=== PATIENT | male | born 1955 | race African-American/Black ===

== ENCOUNTER 2017-03-27 14:39 | Inpatient (IN) ==
[2017-03-27] MEDS ORDERED: DILTIAZEM 50 MG/10 ML VIAL IV STA (14:59)
[2017-03-27] MEDS ORDERED: SODIUM CHLORIDE 0.9% 500 ML IV STA ×2 (15:00→15:07)
--- NOTE | 2017-03-27 15:08 | Emergency Department Note ---
Lakesha Yu Rolonda, am scribing for, and in the presence of, Grayson Conklin MD 15: 01. Katerin Yu James D, MD, personally performed the services described in this documentation, ascribed by Ho Crowder in my presence, and it is both accurate and complete [id number] . Arrival - Arrival Chief Complaint: Shortness of Breath ED Nursing Triage Note: PT WAS PICKED UP BY EMS AND TAKEN TO [facility] FOR LOW O2 SATS AND SOB. PT WAS DX WITH CHF-PRODUCTIVE COUGH AND PULMARY EDEMA AND POSITIVE FOR STREPH Mode of Arrival: Stretcher Limitations: No Limitations Source: Old Records Reviewed, RN Notes Reviewed - History of Present Illness HPI Narrative: Pt is a 61 y/o male who presents to the ED via EMS from [facility] for further evaluation of SOB with an onset of hours ago. Patient states that his caregiver found him at home and that he had not eaten in 2 days. Patient was recently discharged from [facility] rehab. Pt has a PMHx of CHF, Pulmonary edema, Cardiac dysrhythmia, and PVD. He confirms associated sxs of fever and cough. At time of triage pt's temperature was 99.0. Pt states that his healthcare administration intern advised him to go to ED. Pt was given 1g of rocephin and blood cultures were taken at [facility]. No other complaint/pain in ED. Onset (ago): hour(s) Consistency: constant Severity: moderate Severity scale (1-10): 5 Allergies/Adverse Reactions: Allergies Allergy/AdvReac Type Severity Reaction Status Date / Time lactose Allergy Abdominal Verified 03/11/17 18:28 Pain Home Medications: Home Medications Medication Instructions Recorded Confirmed Type Apixaban [Eliquis] 5 mg PO DAILY 03/11/17 03/27/17 History Gabapentin 300 mg PO TID 03/11/17 03/27/17 History Metoprolol Tartrate Tab [Lopressor 100 mg PO BID 03/11/17 03/27/17 History Tab] Mycophenolate Mofetil Cap 250 mg PO BID 03/11/17 03/27/17 History [Cellcept] Potassium Chloride Cap/Tab [K Dur] 40 meq PO DAILY 03/11/17 03/27/17 History Tamsulosin [Flomax] 1 capsule PO DAILY 03/11/17 03/27/17 History Torsemide 100 mg PO DAILY 03/11/17 03/27/17 History Pentoxifylline [TRENtal] 400 mg PO TID tablet 03/23/17 03/27/17 Rx Skin Healing Oint (Aquaphor) 1 applic TOP DAILY applic 03/23/17 03/27/17 Rx [Aquaphor] Furosemide Tab [Lasix Tab] 80 mg PO BID 03/27/17 03/27/17 History Minoxidil 10 mg PO BID 03/27/17 03/27/17 History Spironolactone 50 mg PO DAILY 03/27/17 03/27/17 History predniSONE TAB [PredniSONE] 20 mg PO DAILY 03/27/17 03/27/17 History Review of System - Review of System 12 point system: reviewed and no additional remarkable complaints except as stated - Review of System Constitutional: Present: fever. Absent: chills Eyes: Absent: discharge Head/Ears/Nose/Throat: Absent: earache Respiratory: Present: cough, respiratory distress (SOB) Cardiovascular: Absent: chest pain Gastrointestinal: Absent: abdominal pain, nausea, vomiting Genitourinary male: Absent: dysuria Musculoskeletal: Absent: arm pain, back pain Skin: Absent: rash Medical,Surgical,& Family Hx - Medical History Cardio: History of: Cardiac Dysrhythmia (Atrial fibrillation), CHF, Hypertension , PVD (with stasis ulcers on bilateral lower extremities) Neurology: History of: Cerebrovascular Accident Rheumatology: History of;: Gout Respiratory: History of: Pneumonia Renal: History of: Renal Failure, Renal Problems (Status post renal transplant) Genitourinary: History of: Problems (has adams catheter for bladder training. ) Gastrointestinal: History of: GERD Musculoskeletal: History of: Musculoskeletal Problems (Contracted left hand.) - Surgical History Thoracic Surgeries: Surgical HX of;: Organ Transplant (renal transplant) Orthopedic Surgeries: Surgical HX of;: Orthopedic Surgery (rotator cuff repair) - Social History Smoking Status: Never smoker Frequency of Alcohol Use: None Type of Drug Use: None Exam Vital Signs: Vital Signs Temperature 99.0 F 03/27/17 14:46 Pulse Rate 121 H 03/27/17 14:46 Respiratory Rate 20 03/27/17 15:13 Blood Pressure 100/69 03/27/17 14:46 O2 Sat by Pulse Oximetry 85 L 03/27/17 14:46 GENERAL: This is a chronically and acutely ill appearing black male in no apparent distress. VITAL SIGNS: Reviewed HEENT: Head is atraumatic and normocephalic. Pupils are equal round react to light. Extraocular movements are intact. Oropharynx is benign with moist mucous membranes. NECK: Neck is soft and supple without tenderness. There are no masses. There is no lymphadenopathy. LUNGS: Lungs are clear to auscultation. Chest rises symmetrically. There is no chest wall tenderness. CV: Heart is irregularly irregular with rapid rate without murmurs rubs or gallops. ABDOMEN: Abdomen is soft, nontender to palpation. There are no abdominal abnormal masses palpated. There is no organomegaly. Bowel sounds are present and active. SKIN: Skin is warm and dry. EXTREMITIES: Patient has full range of motion without tenderness. There is trace pedal edema. NEUROLOGIC: Awake alert and oriented 4. Cranial nerves II through XII are grossly intact. Course Course Narrative: Patient was given Cardizem bolus and infusion in the emergency department. Patient was treated at [facility] prior to transfer with 1 g of Rocephin IV. - Consultations Consultation #1: Discussed with hospitalist. Patient will be admitted to their service. Time: 15:32 Results - Labs Lab Results: I have reviewed the patients labs Labs: Lab performed at [facility] and reviewed by me CBC: WBCs 15,000, hemoglobin 11.7, hematocrit 37.3, platelet count 223,000 INR 1.23 Chemistry: Sodium 140, potassium 5.0, chloride 103, CO2 23, BUN 100, creatinine 2.6, calcium 9.4, ALT 50, AST 27, alk phos 110 BNP 16,356 Lactic acid 2.6 - Diagnostic Findings Procedure: Chest x-ray: image reviewed by me (Chest x-ray: Increased pulmonary markings right greater than left) Disposition Clinical Impression: Pneumonia, Acute renal failure, Atrial fibrillation with RVR Case discussed with: patient Disposition: Still a Patient Condition: Stable
[2017-03-27] MEDS ORDERED: SODIUM CHLORIDE 0.9% 1,000 ML IV STA (15:15)
[2017-03-27] MEDS ORDERED: DILTIAZEM 50 MG/10 ML VIAL IV ONE (15:18)
[2017-03-27] MEDS ORDERED: DILTIAZEM 100 MG VIAL.ADD IV ONE (15:18)
[2017-03-27] MEDS ORDERED: SODIUM CHLORIDE 0.9% 100 ML IV ONE (15:18)
[2017-03-27] MEDS: DILTIAZEM INJ 100 MG in SODIUM CHLORIDE 0.9% 100 ML IV SCH ×2 (15:23→22:02)
[2017-03-27] MEDS ORDERED: ACETAMINOPHEN 325 MG TABLET PO PRN (16:16)
[2017-03-27] MEDS ORDERED: ONDANSETRON 4 MG/2 ML VIAL IV PRN (16:16)
[2017-03-27] MEDS ORDERED: ALBUTEROL 2.5 MG/3 ML NEB RESP TX PRN (16:16)
[2017-03-27] MEDS ORDERED: DOCUSATE SODIUM 100 MG CAPSULE PO PRN (16:16)
[2017-03-27 16:48] LABS: ABG Base Excess -1.7 MMOL/L (-2.5-2.5); ABG HCO3 22.8 MMOL/L (20-26); ABG Oxygen Saturation 91.7 % (95-100); ABG PCO2 26.6 MM HG (35-48); ABG PH 7.495 (7.35-7.45); ABG PO2 60.4 MM HG (80-95); ABG TCO2 18.5 MMOL/L (23-27)
[2017-03-27] MEDS ORDERED: PIPERACILLIN/TAZOBACTAM 3,375 MG in SODIUM CHLORIDE 0.9% 100 ML IV ONE (17:00)
[2017-03-27] MEDS ORDERED: VANCOMYCIN INJ 1,250 MG in SODIUM CHLORIDE 0.9% 250 ML IV PRN (17:00)
--- NOTE | 2017-03-27 17:04 | Hospitalist History & Physical ---
Assessment and Plan - Time spent with patient Time spent with patient: Greater than 30 minutes (1) Pneumonia Status: Acute Assessment and plan: Admit. Start on antibiotics. consult infectious disease. Repeat labs in a.m. Current Visit: Yes (2) Atrial fibrillation with RVR Status: Acute Assessment and plan: On cardiazem infusion for A Fib with RVR. Rate is controlled at time of exam. Current Visit: Yes (3) Open wound of both legs with complication Status: Acute Assessment and plan: Consult Dr Davis (known to him) with PVD bilateral lower leg wounds. Current Visit: No (4) Pulmonary hypertension Status: Acute Assessment and plan: Patient has history of CHF and pulmonary hypertension and pulmonary edema. Consult Cardiology. Current Visit: Yes (5) History of kidney transplant Status: Acute Assessment and plan: Continue home medications. Monitor labs closely. Current Visit: No History of Present Illness Chief complaint: shortness of breath History of present illness: Mr. Phelps is a very pleasant 61 year old black male presented to [facility] ED via EMS from [facility] for further followup of shortness of breath. PMHx Atrial Fib, CHF, HTN, PVD, bilateral lower extremities with peripheral venous insufficiency ulcers, pulmonary edema, Kidney transplant (20 years ago). He reports fever and cough. He denies nausea or vomiting. Blood cultures were collected at [facility]. Patient noted to have Afib with RVR and currently on cardiazem infusion. Patient was discharged from [facility] on Sunday from Rehab. Patient states he has a caregiver that checks on him, and the healthcare corporate account director was concerned about the fact the patient has not eaten in 2 days. He lives alone. He reports he ambulates with a cane, but has left sided weakness related to previous stroke. Dr Monroe in [place] is his renal doctor (hx.right kidney transplant). Dr Davis follows him for HX of PVD with leg ulcers. After discussion with Dr Conklin in Ed and Dr Atkins with Hospitalist Services, it was agreed patient needed to be admitted to ICU for further close evaluation. Home medications will be reviewed and reconciliation to follow. Home Medications Medication Instructions Recorded Confirmed Type Apixaban [Eliquis] 5 mg PO DAILY 03/11/17 03/27/17 History Gabapentin 300 mg PO TID 03/11/17 03/27/17 History Metoprolol Tartrate Tab [Lopressor 100 mg PO BID 03/11/17 03/27/17 History Tab] Mycophenolate Mofetil Cap 250 mg PO BID 03/11/17 03/27/17 History [Cellcept] Potassium Chloride Cap/Tab [K Dur] 40 meq PO DAILY 03/11/17 03/27/17 History Tamsulosin [Flomax] 1 capsule PO DAILY 03/11/17 03/27/17 History Torsemide 100 mg PO DAILY 03/11/17 03/27/17 History Pentoxifylline [TRENtal] 400 mg PO TID tablet 03/23/17 03/27/17 Rx Skin Healing Oint (Aquaphor) 1 applic TOP DAILY applic 03/23/17 03/27/17 Rx [Aquaphor] Furosemide Tab [Lasix Tab] 80 mg PO BID 03/27/17 03/27/17 History Minoxidil 10 mg PO BID 03/27/17 03/27/17 History Spironolactone 50 mg PO DAILY 03/27/17 03/27/17 History predniSONE TAB [PredniSONE] 20 mg PO DAILY 03/27/17 03/27/17 History Allergies Allergy/AdvReac Type Severity Reaction Status Date / Time lactose Allergy Abdominal Verified 03/11/17 18:28 Pain Medical,Surgical,& Family Hx - Medical History Cardio: History of: Cardiac Dysrhythmia (Atrial fibrillation), CHF, Hypertension , PVD (with stasis ulcers on bilateral lower extremities) Neurology: History of: Cerebrovascular Accident Rheumatology: History of;: Gout Respiratory: History of: Pneumonia Renal: History of: Renal Failure, Renal Problems (Status post renal transplant) Genitourinary: History of: Problems (has adams catheter for bladder training. ) Gastrointestinal: History of: GERD Musculoskeletal: History of: Musculoskeletal Problems (Contracted left hand.) - Surgical History Thoracic Surgeries: Surgical HX of;: Organ Transplant (renal transplant) Orthopedic Surgeries: Surgical HX of;: Orthopedic Surgery (rotator cuff repair) - Social History Smoking Status: Never smoker Frequency of Alcohol Use: None Type of Drug Use: None Marital Status: Single Lives With:: Alone Functional capacity: uses cane/walker Review of systems: ROS completed and pertinent positives and negatives in HPI. Exam - Constitutional Vitals: Period Temp Pulse Resp BP Sys/Dozier Pulse Ox Last 24 Hr 99.0 F-99.0 F 121-121 20-20 100-100/69-69 85 General appearance: normal weight - Head Head exam: Present: normal inspection - Eye Eye exam: Present: EOMI Pupils: Present: JAMILA - Neck Neck exam: Present: normal inspection - Respiratory Respiratory exam: Present: other (expiratory coarse throughout ). Absent: stridor, wheezes - Cardiovascular Cardiovascular exam: Present: irregular rhythm (hx: afib) - GI/Abdominal GI/Abdominal exam: Present: normal bowel sounds, soft. Absent: tenderness, rebound - Extremities Exam Extremities exam: Present: edema (trace bilateral peripheral edema), other ( left sided weakness r/t past stroke) - Neurological Exam Neurological exam: Present: alert, oriented X3 - Psychiatric Psychiatric exam: Present: normal affect, normal mood - Skin Skin exam: Present: normal color, warm, dry Results - Labs Lab Results: I have reviewed the past 24 hour labs Labs: Labs drawn at [facility] WBC 15.0 Hgb 11.7 Hct 37.3 INR 1.23 PT13.3 PTT 26.6 BUN 100 Creatinine 2.6 BNP 16,356 Blood culture obtained Lactic acid 2.6 Rapid strep - positive Quality Measures - VTE Contraindication to Pharmacological VTE Prophylaxis: Already on Theraputic Agent , No Prophylaxis Needed Contraindication to Mechanical VTE Prophylaxis: Vascular Ulceration
--- NOTE | 2017-03-27 17:21 | Cardiology Consult Note ---
Assessment and Plan - Time spent with patient Time spent with patient: Greater than 30 minutes (Examination, documentation, chart review) (1) Hypertension Status: Chronic Current Visit: No Qualifiers: Hypertension type: essential hypertension Qualified Code(s): I10 - Essential (primary) hypertension (2) Venous stasis ulcer Status: Chronic Current Visit: No (3) History of kidney transplant Status: Chronic Assessment and plan: With acute renal failure and red cells in urine this is highly suspicious for acute rejection. Consider transfer to his transplant center. Current Visit: No (4) Open wound of both legs with complication Status: Chronic Current Visit: No (5) Cerebrovascular accident Status: Chronic Current Visit: No (6) Pneumonia Status: Acute Assessment and plan: Per hospitalist service. The patient is in moderate respiratory distress this is complicated by A. fib with RVR that he is or has contributed to his volume overload in conjunction with acute renal failure Current Visit: Yes (7) Acute renal failure Status: Acute Assessment and plan: The patient has a significant rise in his creatinine he is status post cadaveric renal transplant this is very concerning nephrology is to see. I am actually concerned about his compliance although he is demonstrated compliance obviously for many years this could be an issue Current Visit: Yes (8) Atrial fibrillation with RVR Status: Acute Assessment and plan: The duration of this is unknown. Is probably secondary to his illness and his underlying cardiomyopathy I would like to get a transthoracic echo to assess his LV function. Try to obtain records from [facility] Current Visit: Yes (9) Pulmonary hypertension Status: Chronic Current Visit: Yes History of Present Illness - Data of Consult Patient: new to practice Consult date: 03/27/17 Requesting Physician: Ange Atkins - Consult Narrative Reason for consult: CHF and atrial fibrillation with rapid ventricular response History of present illness: Mr. Phelps is a 61 year old male who is status post cadaveric renal transplant possibly 20 years ago at the [facility]. The patient's previously resided in the [facility] area and has been seen by cardiology at [facility] (Dr. Guidry). The patient states that he declined left heart catheterization just a few weeks ago because of various social reasons. He has moved from the [facility] to [place] so that he can have the assistance of friends. He is recently been in the hospital. The patient presents with febrile illness and new onset atrial fibrillation. He does not know his ejection fraction but states that they told him he had a weak heart. He states that he has not had atrial fibrillation before. I saw and examined the patient in the ICU on the late afternoon of 03/27/2017. The patient was in A. fib with RVR in moderate respiratory distress. He has been seen by the hospitalist service initiated on antibiotics. He does appear to have red cells in his urine that is concerning especially given the significant rise in his creatinine from 1.7 to 2.8. The patient denies any angina type pain he has not had any palpitations in the duration of his atrial fibrillation is unknown. I do not know if he had this prior to now but he is not aware of this. He is unable to tell me his doctors and any significant history without making assumptions and asking him closed ended questions. He can remember almost no doctor's name or any details of his health issues. This may be due to his acute illness. CC: Ange Atkins MD - Home Medications and Allergies Home Medications: Home Medications Medication Instructions Recorded Confirmed Type Gabapentin 300 mg PO TID 03/11/17 03/27/17 History Potassium Chloride Cap/Tab [K Dur] 40 meq PO DAILY 03/11/17 03/27/17 History Tamsulosin [Flomax] 1 capsule PO DAILY 03/11/17 03/27/17 History Torsemide 100 mg PO DAILY 03/11/17 03/27/17 History Pentoxifylline [TRENtal] 400 mg PO TID tablet 03/23/17 03/27/17 Rx Skin Healing Oint (Aquaphor) 1 applic TOP DAILY applic 03/23/17 03/27/17 Rx [Aquaphor] Apixaban [Eliquis] 2.5 mg PO BID 03/27/17 03/27/17 History Furosemide Tab [Lasix Tab] 80 mg PO BID 03/27/17 03/27/17 History Metoprolol Tartrate Tab [Lopressor 50 mg PO BID 03/27/17 03/27/17 History Tab] Minoxidil 20 mg PO BID 03/27/17 03/27/17 History Mycophenolate Mofetil 500 mg PO BID 03/27/17 03/27/17 History Spironolactone 50 mg PO DAILY 03/27/17 03/27/17 History predniSONE TAB [PredniSONE] 10 mg PO DAILY 03/27/17 03/27/17 History Allergies/Adverse Reactions: Allergies Allergy/AdvReac Type Severity Reaction Status Date / Time lactose Allergy Abdominal Verified 03/11/17 18:28 Pain - Constitutional Constitutional: Present: chills, fatigue. Absent: anorexia - Cardiovascular Cardiovascular: Present: dyspnea, dyspnea on exertion, edema (With the drainage and infection), orthopnea. Absent: chest pain at rest, chest pain with activity , diaphoresis, palpitations - Respiratory Respiratory: Present: cough, dyspnea, dyspnea on exertion, wheezing. Absent: hemoptysis, change in phlegm color - Gastrointestinal Gastrointestinal: Present: loose stools. Absent: bloating, coffee ground emesis , heartburn, hematemesis - Genitourinary Genitourinary: Absent: dysuria, flank pain, hematuria - Musculoskeletal Musculoskeletal: Absent: arthralgias - Neurological Neurological: Absent: behavioral changes, confusion, convulsions, disequilibrium , focal weakness - Psychiatric Psychiatric: Present: anxiety, depression - Endocrine Endocrine: Absent: cold intolerance, heat intolerance Medical,Surgical,& Family Hx - Medical History Cardio: History of: Cardiac Dysrhythmia (Atrial fibrillation, new onset), CHF ( Followed at [facility]), Hypertension, PVD (with stasis ulcers on bilateral lower extremities) Neurology: History of: Cerebrovascular Accident Rheumatology: History of;: Gout Respiratory: History of: Pneumonia Renal: History of: Renal Failure, Renal Problems (Status post renal transplant, cadaveric 20 years ago, [facility]) Genitourinary: History of: Problems (has adams catheter for bladder training. ) Gastrointestinal: History of: GERD Musculoskeletal: History of: Musculoskeletal Problems (Contracted left hand.) - Surgical History Thoracic Surgeries: Surgical HX of;: Organ Transplant (renal transplant) Orthopedic Surgeries: Surgical HX of;: Orthopedic Surgery (rotator cuff repair) - Social History Smoking Status: Never smoker Frequency of Alcohol Use: None Type of Drug Use: None Marital Status: Single Lives With:: Alone Functional capacity: independent ambulation Physical Examination Vital Signs Temp Pulse Resp BP Pulse Ox 99.0 F 121 H 20 100/69 85 L 03/27/17 14:46 03/27/17 14:46 03/27/17 14:46 03/27/17 14:46 03/27/17 14:46 General: Present: Other (Appears disheveled and acutely ill) HEENT: Present: Pallor, Normocephaly, Mucus Membranes Dry Neck: Present: Supple Neck, Midline Trachea Cardiac: Present: Irregularly Regular (Right is approximately 120 bpm), S1/S2 Lungs: Present: Bibasilar Rales, Scattered Rhonchi, Other (Tachypnea and very shallow respirations) Neuro: Present: Other (Contracture of his left upper extremity) Abdomen: Present: Soft, Active Bowel Sounds (Is nontender in the lower pelvic area) Skin: Present: Other (Lower extremity stasis ulcers are dressed) Extremities: Present: +2 Edema (Chronic edematous changes bilaterally) Result/EKG - Labs CBC & BMP: 03/27/17 17:35 03/27/17 17:35 Labs: Laboratory Results - last 24 hr 03/27/17 16:42 ABG pH 7.495 H ABG pCO2 26.6 L ABG pO2 60.4 L ABG HCO3 22.8 ABG Total CO2 18.5 L ABG O2 Saturation 91.7 L ABG Base Excess -1.7 Quality Measures - VTE Contraindication to Pharmacological VTE Prophylaxis: Already on Theraputic Agent , No Prophylaxis Needed Contraindication to Mechanical VTE Prophylaxis: Vascular Ulceration
--- NOTE | 2017-03-27 17:36 | Nephrology Consult Note ---
History of Present Illness Chief complaint: Increased BUN and creatinine in a patient with kidney transplant History of present illness: Mr. Phelps is a 61 year old male with a cadaveric kidney transplant from 20 years ago at [facility]. The patient states his creatinine usually runs around 1.3 mg/ dL. The patient is admitted at this time for a cough and shortness of breath. Patient states he began having a cough about a week ago when [facility]. His cough is been productive of reddish sputum. The patient has some associated right lower chest pain. Patient states he had some fever when he initially presented today to the emergency room. Patient also has a left leg ulceration that he is been getting wound care for by Dr. Davis for the past year. We were asked see the patient for his kidney transplant. The patient's usual follow-up is with a senior tax analyst in [place]. The patient takes prednisone, cyclosporine and CellCept for his rejection medications. The patient states he had his cyclosporine recently filled at the drugstore but is not picked it up yet. He has been out of this for the past 2 days. ROS: Head - denies headaches ENT - denies sore throat Lymphatics - denies lymphadenopathy Hematology - denies bleeding problems Heart -positive chest pain Lungs -positive shortness of breath Abdomen - denies abdominal pain Musculoskeletal - denies arthritis Skin - denies rash Neurology - denies stroke General - denies fever PE: General: in no acute distress Eyes: Pupils are round and reactive, conjunctivae are clear ENT: Nose is clear, O/P is benign Neck: Supple, no thyromegaly Lymphatics: No cervical, supraclavicular or axillary adenopathy Heart: Irregular irregular rate and rhythm, 1+ pretibial edema Lungs: Clear to auscultation anteriorly, chest expansion symmetric Abdomen: Soft, normoactive bowel sounds, no hepatomegaly Musculoskeletal: No joint erythema or effusions or joint asymmetry Skin: Normal turgor, normal hydration, no rash, the patient has a fairly large denuded area on his left calf area as well as a quarter sized pinkish lesion on the medial aspect of his right ankle. Neuro/Psych: Alert and cooperative with fair insight Home Medications Medication Instructions Recorded Confirmed Type Apixaban [Eliquis] 5 mg PO DAILY 03/11/17 03/27/17 History Gabapentin 300 mg PO TID 03/11/17 03/27/17 History Metoprolol Tartrate Tab [Lopressor 100 mg PO BID 03/11/17 03/27/17 History Tab] Mycophenolate Mofetil Cap 250 mg PO BID 03/11/17 03/27/17 History [Cellcept] Potassium Chloride Cap/Tab [K Dur] 40 meq PO DAILY 03/11/17 03/27/17 History Tamsulosin [Flomax] 1 capsule PO DAILY 03/11/17 03/27/17 History Torsemide 100 mg PO DAILY 03/11/17 03/27/17 History Pentoxifylline [TRENtal] 400 mg PO TID tablet 03/23/17 03/27/17 Rx Skin Healing Oint (Aquaphor) 1 applic TOP DAILY applic 03/23/17 03/27/17 Rx [Aquaphor] Furosemide Tab [Lasix Tab] 80 mg PO BID 03/27/17 03/27/17 History Minoxidil 10 mg PO BID 03/27/17 03/27/17 History Spironolactone 50 mg PO DAILY 03/27/17 03/27/17 History predniSONE TAB [PredniSONE] 20 mg PO DAILY 03/27/17 03/27/17 History Allergies Allergy/AdvReac Type Severity Reaction Status Date / Time lactose Allergy Abdominal Verified 03/11/17 18:28 Pain Medical,Surgical,& Family Hx - Medical History Cardio: History of: Cardiac Dysrhythmia (Atrial fibrillation), CHF, Hypertension , PVD (with stasis ulcers on bilateral lower extremities) Neurology: History of: Cerebrovascular Accident Rheumatology: History of;: Gout Respiratory: History of: Pneumonia Renal: History of: Renal Failure, Renal Problems (Status post renal transplant) Genitourinary: History of: Problems (has adams catheter for bladder training. ) Gastrointestinal: History of: GERD Musculoskeletal: History of: Musculoskeletal Problems (Contracted left hand.) - Surgical History Thoracic Surgeries: Surgical HX of;: Organ Transplant (renal transplant) Orthopedic Surgeries: Surgical HX of;: Orthopedic Surgery (rotator cuff repair) - Family History Family History: Reports;: Family Diabetes, Family Hypertension - Social History Smoking Status: Never smoker Frequency of Alcohol Use: None Type of Drug Use: None Exam - Vital Signs Vital signs: Period Temp Pulse Resp BP Sys/Dozier Pulse Ox Last 24 Hr 99.0 F-99.0 F 121-121 20-20 100-100/69-69 85 Assessment and Plan (1) Acute renal failure Status: Acute Assessment and plan: This patient's creatinine is increased to 2.6 mg/dL from 1.3 mg/dL per the patient. I suspect this acute rise is related to decreased perfusion related to his atrial fibrillation and rapid ventricular rate and infectious process. We will continue to monitor his creatinine for improvement. Current Visit: Yes (2) Atrial fibrillation with RVR Status: Acute Assessment and plan: Patient's on diltiazem for rate control Current Visit: Yes (3) Pneumonia Status: Acute Assessment and plan: I agree with his current antibiotic therapy, if the patient fails to grow out MRSA I would be inclined to stop his vancomycin and deference to his kidney failure. Current Visit: Yes (4) A-fib Status: Acute Current Visit: No (5) History of kidney transplant Status: Acute Assessment and plan: I am going to start the patient on cyclosporine 250 mg p.o. twice daily as he takes as an outpatient Current Visit: No (6) Hypertension Status: Acute Current Visit: No (7) Open wound of both legs with complication Status: Acute Assessment and plan: We will consult Dr. Davis who sees him for his joints as an outpatient Current Visit: No
--- NOTE | 2017-03-27 17:36 | XRay Report ---
Portable chest Date: 03/27/2017 Clinical history: Shortness of breath Comparison: 03/27/2017 Technique: Portable AP sitting chest Findings: Persistent cardiomegaly with minimally decreased parenchymal findings and smaller pleural effusions. Stable mediastinum and osseous structures. Impression: Improved but persistent significant pulmonary edema with smaller pleural effusions. PROCEDURE INTERPRETED AT [facility] DEPARTMENT OF RADIOLOGY Final Report Signed by: Dr. Jenny Rivero
[2017-03-27 17:41] LABS: Basophils % 0.1 % (0.0-0.8); Eosinophils % 0.2 % (0.00-10.9); Hematocrit 37.1 VOL% (42.0-52.0); Hemoglobin 11.2 GM/DL (14.0-18.0); Immature Granulocytes % 0.9 %; Immature Granulocytes Absolute 0.15 #; Lymphocytes # 0.9 10*3/uL (1.4-4.0); Mean Corpuscular HGB Conc 30.2 GM/DL (32-36); Mean Corpuscular Hemoglobin 22 PG (27-34); Mean Corpuscular Volume 71.9 FL (87-102); Monocytes # 0.8 10*3/uL (0.11-0.8); Monocytes % 4.4 % (1.7-12.7); NRBC # 0.06 10*3/uL; Neutrophils # 15.4 10*3/uL (1.4-7.4); Neutrophils % 89.4 % (38.7-73.9); Platelet Count 184 T/CUMM (130-400); Red Blood Count 5.16 MC/CUMM (3.8-5.5); Red Cell Distribution Width 25.6 % (9.3-17.3); White Blood Count 17.2 T/CUMM (4-12)
[2017-03-27] MEDS: ALBUTEROL/IPRATROPIUM 3 ML NEB RESP TX SCH (17:57)
[2017-03-27] MEDS ORDERED: CEFTAROLINE 600 MG in SODIUM CHLORIDE 0.9% 100 ML IV SCH (18:00)
[2017-03-27 18:02] LABS: Albumin 2.8 G/DL (3.4-5.0); Bilirubin,Total 2.7 MG/DL (0.2-1.0); Calcium 9.3 MG/DL (8.5-10.1); Osmolality,Calculated 307.7 MOS/KG (273-304); Potassium 4.6 MMOL/L (3.5-5.1); Total Protein 7.6 G/DL (6.4-8.3)
[2017-03-27 18:05] LABS: ABG Base Excess -2.5 MMOL/L (-2.5-2.5); ABG HCO3 19.6 MMOL/L (20-26); ABG Oxygen Saturation 63.3 % (95-100); ABG PCO2 26.4 MM HG (35-48); ABG PH 7.489 (7.35-7.45); ABG TCO2 20.4 MMOL/L (23-27)
[2017-03-27 18:07] LABS: ABG PO2 28.2 MM HG (80-95)
[2017-03-27 18:23] LABS: ABG Base Excess -4.6 MMOL/L (-2.5-2.5); ABG HCO3 17.9 MMOL/L (20-26); ABG Oxygen Saturation 98.4 % (95-100); ABG PH 7.456 (7.35-7.45); ABG PO2 128.2 MM HG (80-95); ABG TCO2 18.7 MMOL/L (23-27); Glucose Heart Surgery 174 MG/DL (74-106); Potassium Heart/CVR 4.7 MMOL/L (3.5-5.1)
[2017-03-27] MEDS ORDERED: PROPOFOL 1,000 MG/100 ML BOTTLE IV ONE (18:43)
--- NOTE | 2017-03-27 18:43 | Event Note ---
I was called to evaluate the patient for shortness of breath. The patient is struggling to breathe and seems to have worsened since admission to the hospital. I have asked the staff to collect items required for emergent intubation. Examination reveals rhonchi in bilateral bases, tachycardia, abdomen soft. The patient was sedated with 10 cc Diprivan and given 50 mg of succinylcholine. The patient had good oxygenation as measured by oximetry. The patient's vocal cords were visualized using a glide scope technique and a 7.5 endotracheal tube was advanced between the vocal cords and the balloon was inflated. Tube placement was confirmed by color change carbon dioxide indicator and by auscultation. Chest x-ray and arterial blood gas were ordered. I initiated mechanical ventilation and coordinated care with respiratory therapist. Total critical care time today is 74 minutes.
[2017-03-27] MEDS ORDERED: SUCCINYLCHOLINE 200 MG/10 ML VIAL ONE (18:44)
--- NOTE | 2017-03-27 19:10 | XRay Report ---
Portable chest Date: 03/27/2017 Clinical history: Post intubation Comparison: 03/27/2017 Technique: Portable AP sitting chest Findings: Persistent cardiomegaly with decreased parenchymal findings and smaller pleural effusions. The endotracheal tube is in satisfactory position. Stable mediastinum and osseous structures. Impression: Improved pulmonary edema with smaller pleural effusions. The endotracheal tube is in satisfactory position. PROCEDURE INTERPRETED AT [facility] DEPARTMENT OF RADIOLOGY Final Report Signed by: Dr. Jenny Rivero
[2017-03-27] MEDS: PROPOFOL 1,000 MG/100 ML BOTTLE IV SCH ×2 (19:16→22:47)
[2017-03-27 19:21] LABS: Apearance,Urine CLEAR (Clear); Bacteria,Urine Occasional /HPF (Few); Bilirubin,Urine Negative (Negative); Blood, Urine Moderate mg/dL (Negative); Glucose,Urine (UA) Negative (Negative); Ketones,Urine Negative (Negative); Nitrite,Urine Negative (Negative); Protein,Urine Negative; RBC,Urine 2 /HPF (0-4); Urine Color Yellow (Yellow); Urine Specific Gravity 1.011 (1.001-1.035); Urine Urobilinogen < 2.0 EU/DL (0.2-1.0); WBC,Urine <1 /HPF (0-6)
[2017-03-27] MEDS ORDERED: VANCOMYCIN INJ 1,250 MG in SODIUM CHLORIDE 0.9% 250 ML IV ONE (19:30)
[2017-03-27 19:43] LABS: ABG Base Excess -2.8 MMOL/L (-2.5-2.5); ABG HCO3 18.6 MMOL/L (20-26); ABG Oxygen Saturation 99.7 % (95-100); ABG PCO2 23.1 MM HG (35-48); ABG PH 7.524 (7.35-7.45); ABG TCO2 19.3 MMOL/L (23-27); Allen Test Positive; Pt O2 Delivery Device Ventilator
[2017-03-27] MEDS ORDERED: SUCCINYLCHOLINE 200 MG/10 ML VIAL IV ONE (19:46)
[2017-03-27] MEDS ORDERED: SODIUM CHLORIDE 0.9% 500 ML IV ONE (19:46)
[2017-03-27] MEDS ORDERED: PROPOFOL 200 MG/20 ML VIAL IV ONE (19:46)
[2017-03-27] MEDS: PENTOXIFYLLINE 400 MG TABLET PO SCH (20:29)
[2017-03-27] MEDS: APIXABAN 2.5 MG TABLET PO SCH (20:29)
[2017-03-27] MEDS: GABAPENTIN 300 MG CAPSULE PO SCH (20:30)
[2017-03-27] MEDS: PANTOPRAZOLE 40 MG VIAL IV SCH (20:30)
[2017-03-27] MEDS: MYCOPHENOLATE MOFETIL 250 MG CAPSULE PO SCH (20:30)
[2017-03-27] MEDS: METOPROLOL TARTRATE 25 MG TABLET PO SCH (20:30)
[2017-03-27] MEDS: methylPREDNISolone SOD SUC 40 MG/1 ML VIAL IV SCH (20:34)
[2017-03-27] MEDS ORDERED: MINOXIDIL 2.5 MG TABLET PO SCH (21:00)
[2017-03-27] MEDS ORDERED: METOPROLOL TARTRATE 100 MG TABLET PO SCH (21:00)
[2017-03-27] MEDS ORDERED: CYCLOSPORINE 25 MG PO ONE (21:00)
[2017-03-28] MEDS: MIDAZOLAM 100 MG in SODIUM CHLORIDE 0.9% 80 ML IV SCH ×2 (01:30→20:04)
[2017-03-28] MEDS: PIPERACILLIN/TAZOBACTAM 3,375 MG in SODIUM CHLORIDE 0.9% 100 ML IV SCH ×3 (02:05→18:04)
[2017-03-28 03:38] LABS: ABG Base Excess -2.7 MMOL/L (-2.5-2.5); ABG HCO3 22.2 MMOL/L (20-26); ABG PCO2 29.7 MM HG (35-48); ABG PH 7.446 (7.35-7.45); ABG TCO2 18.5 MMOL/L (23-27); Allen Test Positive; Pt O2 Delivery Device Ventilator
[2017-03-28] MEDS: methylPREDNISolone SOD SUC 40 MG/1 ML VIAL IV SCH ×3 (05:15→21:17)
[2017-03-28] MEDS: ALBUTEROL/IPRATROPIUM 3 ML NEB RESP TX SCH ×4 (07:15→19:33)
--- NOTE | 2017-03-28 07:21 | XRay Report ---
XR chest 1V portable Indication: Pneumonia Comparison: 27 March 2017 Findings: The heart and mediastinum are stable in size and configuration. The lines and tubes are unchanged in position. The pulmonary vascularity is increased with interstitial lung density more prominent in the right lower lung, similar to previous exam. No other lung infiltrates, effusions, pneumothorax or other abnormality is demonstrated. Impression: No significant change PROCEDURE INTERPRETED AT [facility] DEPARTMENT OF RADIOLOGY Final Report Signed by: Dr. Hitesh Bolaños
[2017-03-28 07:55] LABS: Basophils % 0.1 % (0.0-0.8); Hematocrit 33.2 VOL% (42.0-52.0); Hemoglobin 10.1 GM/DL (14.0-18.0); Immature Granulocytes % 1.6 %; Immature Granulocytes Absolute 0.28 #; Lymphocytes # 0.6 10*3/uL (1.4-4.0); Lymphocytes % 3.1 % (21.2-54.2); Mean Corpuscular HGB Conc 30.4 GM/DL (32-36); Mean Corpuscular Hemoglobin 22 PG (27-34); Mean Corpuscular Volume 70.9 FL (87-102); Monocytes # 0.2 10*3/uL (0.11-0.8); Monocytes % 1.3 % (1.7-12.7); Neutrophils # 16.8 10*3/uL (1.4-7.4); Neutrophils % 93.9 % (38.7-73.9); Platelet Count 160 T/CUMM (130-400); Red Blood Count 4.68 MC/CUMM (3.8-5.5); Red Cell Distribution Width 25.4 % (9.3-17.3); White Blood Count 17.9 T/CUMM (4-12)
--- NOTE | 2017-03-28 07:56 | Nephrology Progress Note ---
Nephrology - PN: Subj Interval history: Patient is intubated and sedate. Physical exam general the patient is chronically ill-appearing, heart is regular rate and rhythm, he has 1+ pretibial edema, lungs are clear to auscultation anteriorly, abdomen is soft with positive bowel sounds Assessment/plan 1. Acute renal failure-patient's creatinine was 2.4 mg/dL yesterday, today's values pending 2. Pneumonia-patient had to be intubated last night he continues on IV antibiotics will continue ventilator support 3. Respiratory failure 4. Venous stasis ulcer continue wound care 5. kidney transplant-continue his present antirejection medicines. 6. Nutrition-I am going to ask dietary to see him for initiating tube feeds. Exam (PN)-Nephrology - Vital Signs Vital signs: Period Temp Pulse Resp BP Sys/Dozier Pulse Ox Last 24 Hr 98.1 F-99.8 F 88-126 14-39 88-134/56-109 85-100 - Lab 03/27/17 17:35 03/27/17 17:35 Most recent lab results ABG pH 7.446 (7.35-7.45) 03/28/17 03:27 ABG pCO2 29.7 MM HG (35-48) L 03/28/17 03:27 ABG pO2 212.0 MM HG (80-95) H 03/28/17 03:27 ABG HCO3 22.2 MMOL/L (20-26) 03/28/17 03:27 ABG O2 Saturation 100.0 % (95-100) 03/28/17 03:27 Calcium 9.3 MG/DL (8.5-10.1) 03/27/17 17:35 Assessment and Plan (1) Acute renal failure Status: Acute Assessment and plan: This patient's creatinine is increased to 2.6 mg/dL from 1.3 mg/dL per the patient. I suspect this acute rise is related to decreased perfusion related to his atrial fibrillation and rapid ventricular rate and infectious process. We will continue to monitor his creatinine for improvement. Current Visit: Yes (2) Atrial fibrillation with RVR Status: Acute Assessment and plan: Patient's on diltiazem for rate control Current Visit: Yes (3) Pneumonia Status: Acute Assessment and plan: I agree with his current antibiotic therapy, if the patient fails to grow out MRSA I would be inclined to stop his vancomycin and deference to his kidney failure. Current Visit: Yes (4) A-fib Status: Acute Current Visit: No (5) History of kidney transplant Status: Chronic Assessment and plan: I am going to start the patient on cyclosporine 250 mg p.o. twice daily as he takes as an outpatient Current Visit: No (6) Hypertension Status: Chronic Current Visit: No Qualifiers: Hypertension type: essential hypertension Qualified Code(s): I10 - Essential (primary) hypertension (7) Open wound of both legs with complication Status: Chronic Assessment and plan: We will consult Dr. Davis who sees him for his joints as an outpatient Current Visit: No
--- NOTE | 2017-03-28 08:20 | Pulmonology Consult Note ---
Assessment and Plan (1) Acute pulmonary edema Status: Acute Assessment and plan: The patient's x-ray looks like acute pulmonary edema and his oxygenation is better on the ventilator. Current Visit: Yes (2) Hypertension Status: Chronic Assessment and plan: Patient has a long history of hypertensive cardiovascular disease. Current Visit: No Qualifiers: Hypertension type: essential hypertension Qualified Code(s): I10 - Essential (primary) hypertension (3) History of kidney transplant Status: Chronic Assessment and plan: Patient has a long history of a kidney transplant. Current Visit: No (4) Open wound of both legs with complication Status: Chronic Assessment and plan: The patient has some venous stasis disease and is followed by surgery. Current Visit: No (5) Cerebrovascular accident Status: Chronic Assessment and plan: Patient apparently had a CVA in the past. Current Visit: No (6) Pneumonia Status: Acute Assessment and plan: The patient has an elevated white count and is covered with antibiotics. Most of this is probably pulmonary edema however. Current Visit: Yes (7) Atrial fibrillation with RVR Status: Acute Assessment and plan: The patient's heart rate is under better control. Current Visit: Yes History of Present Illness Chief complaint: Ventilator management History of present illness: Mr. Phelps is a 61 year old black male that apparently has a long history of having chronic renal disease. He apparently had a kidney transplant years ago. He has a history of hypertension, atrial fibrillation, peripheral vascular disease, and chronic heart failure. He came in with worsening shortness of breath and apparently had frothy pulmonary edema. He had to be intubated and is now on the ventilator. He does not have a history of lung disease but may have secondary pulmonary hypertension. He has never been a smoker. He is stable on the ventilator at present. Home Medications Medication Instructions Recorded Confirmed Type Gabapentin 300 mg PO TID 03/11/17 03/27/17 History Potassium Chloride Cap/Tab [K Dur] 40 meq PO DAILY 03/11/17 03/27/17 History Tamsulosin [Flomax] 1 capsule PO DAILY 03/11/17 03/27/17 History Torsemide 100 mg PO DAILY 03/11/17 03/27/17 History Pentoxifylline [TRENtal] 400 mg PO TID tablet 03/23/17 03/27/17 Rx Skin Healing Oint (Aquaphor) 1 applic TOP DAILY applic 03/23/17 03/27/17 Rx [Aquaphor] Apixaban [Eliquis] 2.5 mg PO BID 03/27/17 03/27/17 History Furosemide Tab [Lasix Tab] 80 mg PO BID 03/27/17 03/27/17 History Metoprolol Tartrate Tab [Lopressor 50 mg PO BID 03/27/17 03/27/17 History Tab] Minoxidil 20 mg PO BID 03/27/17 03/27/17 History Mycophenolate Mofetil 500 mg PO BID 03/27/17 03/27/17 History Spironolactone 50 mg PO DAILY 03/27/17 03/27/17 History predniSONE TAB [PredniSONE] 10 mg PO DAILY 03/27/17 03/27/17 History Allergies Allergy/AdvReac Type Severity Reaction Status Date / Time lactose Allergy Abdominal Verified 03/11/17 18:28 Pain ROS unobtainable: due to endotracheal tube (Is unable to give a history at present.) Exam (Pulmonay) H&P - Constitutional Vitals: Period Temp Pulse Resp BP Sys/Dozier Pulse Ox Last 24 Hr 97.4 F-99.8 F 88-126 14-39 88-134/56-109 85-100 General appearance: normal weight, no acute distress (The patient is sedated on the ventilator.) - Head Head exam: Present: normal inspection, normocephalic - Eye Eye exam: Present: EOMI. Absent: scleral icterus Pupils: Present: JAMILA - ENT ENT exam: Present: other (ET tube is in good position.) - Neck Neck exam: Present: normal inspection. Absent: lymphadenopathy, thyromegaly - Respiratory Respiratory exam: Present: rhonchi, other (Patient has good breath sounds on the ventilator now.). Absent: accessory muscle use - Cardiovascular Cardiovascular exam: Present: irregular rhythm, systolic murmur. Absent: gallop , tachycardia - GI/Abdominal GI/Abdominal exam: Present: normal bowel sounds, soft. Absent: organomegaly, tenderness - Extremities Exam Extremities exam: Present: edema, other (He has wounds on his legs and these are wrapped.) - Neurological Exam Neurological exam: Present: other (Patient is sedated at present.) - Psychiatric Psychiatric exam: Absent: anxious - Skin Skin exam: Present: warm, dry Medical,Surgical,& Family Hx - Medical History Cardio: History of: Cardiac Dysrhythmia (Atrial fibrillation, new onset), CHF ( Followed at [facility]), Hypertension, PVD (with stasis ulcers on bilateral lower extremities) Neurology: History of: Cerebrovascular Accident Rheumatology: History of;: Gout Respiratory: History of: Pneumonia Renal: History of: Renal Failure, Renal Problems (Status post renal transplant, cadaveric 20 years ago, [facility]) Genitourinary: History of: Problems (has adams catheter for bladder training. ) Gastrointestinal: History of: GERD Musculoskeletal: History of: Musculoskeletal Problems (Contracted left hand.) - Surgical History Thoracic Surgeries: Surgical HX of;: Organ Transplant (renal transplant) Orthopedic Surgeries: Surgical HX of;: Orthopedic Surgery (rotator cuff repair) - Family History Family History: Reports;: Family Diabetes, Family Hypertension - Social History Smoking Status: Never smoker Frequency of Alcohol Use: None Type of Drug Use: None Results - Labs CBC & BMP: 03/28/17 07:43 03/27/17 17:35 Labs: PO2 is 212 with a PCO2 of 29 and a pH of 7.44 - Diagnostic Findings Procedure: Chest x-ray: image reviewed by me, report reviewed by me (Chest x- ray shows cardiomegaly and is consistent with pulmonary edema.) Quality Measures - VTE Contraindication to Pharmacological VTE Prophylaxis: Already on Theraputic Agent , No Prophylaxis Needed Contraindication to Mechanical VTE Prophylaxis: Vascular Ulceration
[2017-03-28 08:32] LABS: Albumin 2.4 G/DL (3.4-5.0); Band Neutrophils 3 % (0-10); Bilirubin,Total 2.3 MG/DL (0.2-1.0); Burr Cells Slight; Hypochromasia 1+; Lymphocytes 1 % (20-55); Microcytosis Slight; Osmolality,Calculated 314.4 MOS/KG (273-304); Platelet Estimate Normal; Potassium 4.9 MMOL/L (3.5-5.1); Segmented Neutrophils 95 % (50-85); Total Cells Counted 100; Total Protein 7.1 G/DL (6.4-8.3)
[2017-03-28] MEDS: TAMSULOSIN 0.4 MG CAPSULE PO SCH (08:34)
[2017-03-28] MEDS: APIXABAN 2.5 MG TABLET PO SCH ×2 (08:35→21:16)
[2017-03-28] MEDS: PENTOXIFYLLINE 400 MG TABLET PO SCH ×3 (08:35→21:15)
[2017-03-28] MEDS: METOPROLOL TARTRATE 25 MG TABLET PO SCH ×2 (08:35→21:15)
[2017-03-28] MEDS: SKIN HEALING OINT (AQUAPHOR) 50 GM TUBE TOP SCH (08:36)
[2017-03-28] MEDS: MYCOPHENOLATE MOFETIL 250 MG CAPSULE PO SCH ×2 (08:36→21:17)
[2017-03-28] MEDS: GABAPENTIN 300 MG CAPSULE PO SCH ×3 (08:36→21:16)
[2017-03-28] MEDS ORDERED: APIXABAN 5 MG TABLET PO SCH (09:00)
[2017-03-28] MEDS ORDERED: SPIRONOLACTONE 50 MG TABLET PO SCH (09:00)
[2017-03-28] MEDS ORDERED: predniSONE 20 MG TABLET PO SCH (09:00)
[2017-03-28] MEDS: CYCLOSPORINE 25 MG PO SCH (09:06)
[2017-03-28] MEDS: cycloSPORINE (MODIFIED) 100 MG CAPSULE PO SCH (09:07)
--- NOTE | 2017-03-28 10:05 | Hospitalist Progress Note ---
Assessment and Plan (1) Respiratory failure, acute Status: Acute Assessment and plan: 1)acute respiratory failure- last night once ABG obtained consistent with resp alkalosis he soon tired out and required intubation. He has been stable on the vent and his FIO2 was decreased this morning. His exam sounds good, less coarse than on admission. He was able to give me a good history in the ER, and I note Dr Gasca reports he could not talk to him around 6p last night. His resp failure worsened quickly. 2)sepsis- lactic acid was coming down yesterday. WBC same at 18. no positive cultures. possible sources are LE wounds or possible pneumonia more dense at right base on CXR but looks mor like pulmonary edema.) Continue broad spectrum antibiotics. ID to see. Stress dose steroids started because he in on chronic prednisone. BP doing ok- has not needed pressors and I held his usual daily antiHTN meds. He was given about 2 L NS in ER last night. Resuscitation for sepsis was not continued because of his resp failure and acute heart failure/ pulmonary edema. 3)NANNETTE in 19 year old renal transplant- immunosuppression continued per DR Burgess. On stress dose steroids because he is on prednisone chronically. Creatinine up to 2.7, where it was when he presented last month with similar picture. kristie over last month was 1.8. 4)heart failure- he told me he had pulmonary HTN and heart failure from HTN, substantiated by report in Dr smith's admit to swing bed from [facility]. Echo pending. The afib is chronic but rate usually better controlled than it was on admission. This morning he is off Dilt drip and his rate is around 110. Current Visit: Yes (2) History of kidney transplant Status: Chronic Current Visit: No (3) Open wound of both legs with complication Status: Chronic Current Visit: No (4) Cerebrovascular accident Status: Chronic Current Visit: No (5) Pneumonia Status: Acute Current Visit: Yes (6) Acute renal failure Status: Acute Current Visit: Yes (7) Atrial fibrillation with RVR Status: Acute Current Visit: Yes (8) Pulmonary hypertension Status: Chronic Current Visit: Yes (9) Acute pulmonary edema Status: Acute Current Visit: Yes (10) Sepsis Status: Acute Current Visit: Yes Hospitalist: Subjective Interval history: Mr Phelps is stable on the vent. His BP has been stable after changing to versed infusion. I held his scheduled antiHTN starting last night. Exam - Constitutional Vitals: Period Temp Pulse Resp BP Sys/Dozier Pulse Ox Last 24 Hr 97.4 F-99.8 F 88-126 14-39 88-134/53-109 85-100 General appearance: normal weight, no acute distress - Eye Eye exam: Present: EOMI. Absent: scleral icterus - Respiratory Respiratory exam: Present: clear to auscultation bilaterally - Cardiovascular Cardiovascular exam: Present: irregular rhythm, tachycardia - GI/Abdominal GI/Abdominal exam: Present: normal bowel sounds, soft. Absent: tenderness (not tender over transplant yesterday or today) - Extremities Exam Extremities exam: Present: edema (trace LE edema but also wrinkled dry skin over feet and shins that are not dressed. His legs were just wrapped by DR Davis pics pending. ) - Neurological Exam Neurological exam: Present: other (sedated on vent) Results - Labs CBC & BMP: 03/28/17 07:43 03/28/17 07:43 Lab Results: I have reviewed the past 24 hour labs Quality Measures - VTE Contraindication to Pharmacological VTE Prophylaxis: Already on Theraputic Agent , No Prophylaxis Needed Contraindication to Mechanical VTE Prophylaxis: Vascular Ulceration
--- NOTE | 2017-03-28 11:35 | Infectious Disease Consult ---
Assessment and Plan (1) Acute pulmonary edema Status: Acute Assessment and plan: I am told patient has a history of CHF Current Visit: Yes (2) Acute renal failure Status: Acute Assessment and plan: Patient has acute on chronic renal failure, bit worse today than yesterday. Renal function will have to be monitored closely on vancomycin which is to be dosed intermittently based on random serum level. Current Visit: Yes (3) Atrial fibrillation with RVR Status: Acute Current Visit: Yes (4) Respiratory failure, acute Status: Acute Assessment and plan: Probably due to acute pulmonary edema rather than pneumonia. His sputum Gram stain was negative for infection. Current Visit: Yes (5) Sepsis Status: Acute Assessment and plan: Not sure because but no evidence of pneumonia or urinary tract infection. He does have an open wound to the left leg and it serves as an entry point for bacteria into the bloodstream. Recommendations: 1. Agree with empiric vancomycin and Zosyn 2. Follow-up results of blood cultures which are in progress and depending on results will de-escalate antibiotics accordingly Thank you very much for the consult. Will follow. Current Visit: Yes (6) History of kidney transplant Status: Chronic Assessment and plan: This makes the patient immunocompromised and at risk for serious infections. Cultures will be followed. Current Visit: No (7) Venous stasis ulcer Status: Chronic Assessment and plan: The also appears to be clean, no evidence of active infection. Recommendations: Continue local wound care. Current Visit: No History of Present Illness Chief complaint: Sepsis History of present illness: Mr. Phelps is a 61 year old male who presented to hospital yesterday with shortness of breath. His respiratory distress quickly worsened he felt respiratory failure and had to be intubated and put on the vent. Patient has not been febrile but he was noted to have leukocytosis and lactic acid was high so it was felt he may have been septic given the fact that he is immunocompromise being on immunosuppressive's renal transplant. He never required vasopressors. He has chronic wounds on his legs which have been managed by wound care. I am asked to assist with management. Home Medications Medication Instructions Recorded Confirmed Type Gabapentin 300 mg PO TID 03/11/17 03/27/17 History Potassium Chloride Cap/Tab [K Dur] 40 meq PO DAILY 03/11/17 03/27/17 History Tamsulosin [Flomax] 1 capsule PO DAILY 03/11/17 03/27/17 History Torsemide 100 mg PO DAILY 03/11/17 03/27/17 History Pentoxifylline [TRENtal] 400 mg PO TID tablet 03/23/17 03/27/17 Rx Skin Healing Oint (Aquaphor) 1 applic TOP DAILY applic 03/23/17 03/27/17 Rx [Aquaphor] Apixaban [Eliquis] 2.5 mg PO BID 03/27/17 03/27/17 History Furosemide Tab [Lasix Tab] 80 mg PO BID 03/27/17 03/27/17 History Metoprolol Tartrate Tab [Lopressor 50 mg PO BID 03/27/17 03/27/17 History Tab] Minoxidil 20 mg PO BID 03/27/17 03/27/17 History Mycophenolate Mofetil 500 mg PO BID 03/27/17 03/27/17 History Spironolactone 50 mg PO DAILY 03/27/17 03/27/17 History predniSONE TAB [PredniSONE] 10 mg PO DAILY 03/27/17 03/27/17 History Allergies Allergy/AdvReac Type Severity Reaction Status Date / Time lactose Allergy Abdominal Verified 03/11/17 18:28 Pain ROS unobtainable: due to endotracheal tube, due to mental status Medical,Surgical,& Family Hx - Medical History Cardio: History of: Cardiac Dysrhythmia (Atrial fibrillation, new onset), CHF ( Followed at [facility]), Hypertension, PVD (with stasis ulcers on bilateral lower extremities) Neurology: History of: Cerebrovascular Accident Rheumatology: History of;: Gout Respiratory: History of: Pneumonia Renal: History of: Renal Failure, Renal Problems (Status post renal transplant, cadaveric 20 years ago, [facility]) Genitourinary: History of: Problems (has adams catheter for bladder training. ) Gastrointestinal: History of: GERD Musculoskeletal: History of: Musculoskeletal Problems (Contracted left hand.) - Surgical History Thoracic Surgeries: Surgical HX of;: Organ Transplant (renal transplant) Orthopedic Surgeries: Surgical HX of;: Orthopedic Surgery (rotator cuff repair) - Family History Family History: Reports;: Family Diabetes, Family Hypertension - Social History Smoking Status: Never smoker Frequency of Alcohol Use: None Type of Drug Use: None Infectious Disease Exam H&P - Constitutional Vitals: Vital Signs Temp Pulse Resp BP Pulse Ox 97.4 F L 119 H 14 102/67 100 03/28/17 08:00 03/28/17 11:00 03/28/17 11:30 03/28/17 11:00 03/28/17 11:00 Intake and Output 03/27/17 03/28/17 03/28/17 23:59 07:59 15:59 Intake Total 774 / 774 272 / 272 60 / 60 Output Total 605 / 605 510 / 510 400 / 400 Balance 169 / 169 -238 / -238 -340 / -340 Intake: IV 704 / 704 152 / 152 Cardizem Inj 100 mg In Ns 104 / 104 5 / 5 100 ml @ 10 MG/HR 10 mls /hr IV TITRATE CHON Rx#: [id number] Zosyn 3,375 mg In Ns 100 100 / 100 ml @ 25 mls/hr IV Q8H CHON Rx#:[id number] DIPRIVAN 1,000 mg In 100 100 / 100 47 / 47 ml @ 5 MCG/KG/MIN 2.313 mls/hr IV TITRATE CHON Rx# :[id number] Ns 500 ml @ 999 mls/hr IV 500 / 500 BOLUS ONE Rx#:[id number] Oral 70 / 70 120 / 120 Tube Feeding Flush 60 / 60 Output: Urine 605 / 605 510 / 510 400 / 400 Other: Voiding Method Indwelling Catheter Indwelling Catheter Indwelling Catheter Weight 76.748 kg 76.607 kg Patient Weight 03/28/17 23:59 Weight 76.607 kg Exam: General: Patient sedated on the vent HEENT: Mucous membranes pink and moist, anicteric acyanotic, JAMILA, ET tube in situ Neck: Supple, no thyroid gland enlargement Respiratory system: Breath sounds vesicular, no crepitations or wheezes Cardiovascular: Normal S1 and S2, no murmurs appreciated Abdomen: Normal bowel sounds, soft nontender throughout, transplanted kidney felt in right lower quadrant Genitourinary: No suprapubic pain or bladder distention, clear urine from Adams catheter Extremities: Chronic edema to left leg with thickening of the skin of both legs , he has large irregular ulceration to the distal half of the left leg almost circumferential but it is pink granulating no significant exudate or purulence Skin: No rash Reports - Labs CBC & BMP: 03/28/17 07:43 03/28/17 07:43 Labs: Laboratory Results - last 24 hr 03/27/17 03/27/17 03/27/17 16:42 17:35 17:35 WBC 17.2 H RBC 5.16 Hgb 11.2 L Hct 37.1 L MCV 71.9 L MCH 22 L MCHC 30.2 L RDW 25.6 H Plt Count 184 Neut % (Auto) 89.4 H Lymph % (Auto) 5.0 L Bent % (Auto) 4.4 Eos % (Auto) 0.2 Baso % (Auto) 0.1 Neut # (Auto) 15.4 H Lymph # (Auto) 0.9 L Bent # (Auto) 0.8 Eos # (Auto) 0.0 Baso # (Auto) 0.0 Total Counted Immature Gran % 0.9 Nucleated RBC % 0.3 Immature Gran # 0.15 Segmented Neutrophils Band Neutrophils Lymphocytes Monocytes Nucleated RBCs # 0.06 Platelet Estimate Hypochromasia Microcytosis Héctor Cells Morphology Comment ABG pH 7.495 H ABG pCO2 26.6 L ABG pO2 60.4 L ABG HCO3 22.8 ABG Total CO2 18.5 L ABG O2 Saturation 91.7 L ABG Base Excess -1.7 Hemoglobin Hematocrit FiO2 Sodium Potassium Chloride Carbon Dioxide Anion Gap BUN Creatinine GFR Calculation BUN/Creatinine Ratio Glucose Hemoglobin A1c Calculated Osmolality Lactic Acid Calcium Total Bilirubin AST ALT Alkaline Phosphatase B-Natriuretic Peptide 868 H Total Protein Albumin Globulin Albumin/Globulin Ratio Urine Color Urine Appearance Urine pH Ur Specific [place] Urine Protein Urine Glucose (UA) Urine Ketones Urine Blood Urine Nitrate Urine Bilirubin Urine Urobilinogen Urine Leukocytes Urine RBC Urine WBC Urine Bacteria Ur Culture Indicated? 03/27/17 03/27/17 03/27/17 17:35 17:35 17:35 WBC RBC Hgb Hct MCV MCH MCHC RDW Plt Count Neut % (Auto) Lymph % (Auto) Bent % (Auto) Eos % (Auto) Baso % (Auto) Neut # (Auto) Lymph # (Auto) Bent # (Auto) Eos # (Auto) Baso # (Auto) Total Counted Immature Gran % Nucleated RBC % Immature Gran # Segmented Neutrophils Band Neutrophils Lymphocytes Monocytes Nucleated RBCs # Platelet Estimate Hypochromasia Microcytosis [place] Cells Morphology Comment ABG pH ABG pCO2 ABG pO2 ABG HCO3 ABG Total CO2 ABG O2 Saturation ABG Base Excess Hemoglobin Hematocrit FiO2 Sodium 138 Potassium 4.6 Chloride 105 Carbon Dioxide 23 Anion Gap 14.6 BUN 99 H Creatinine 2.40 H GFR Calculation 36 BUN/Creatinine Ratio 41.00 H Glucose 141 H Hemoglobin A1c 6.5 H Calculated Osmolality 307.7 H Lactic Acid 2.2 H Calcium 9.3 Total Bilirubin 2.70 H AST 25 ALT 42 Alkaline Phosphatase 101 B-Natriuretic Peptide Total Protein 7.6 Albumin 2.8 L Globulin 4.8 H Albumin/Globulin Ratio 0.5 L Urine Color Urine Appearance Urine pH Ur Specific [place] Urine Protein Urine Glucose (UA) Urine Ketones Urine Blood Urine Nitrate Urine Bilirubin Urine Urobilinogen Urine Leukocytes Urine RBC Urine WBC Urine Bacteria Ur Culture Indicated? 03/27/17 03/27/17 03/27/17 18:01 18:22 19:35 WBC RBC Hgb Hct MCV MCH MCHC RDW Plt Count Neut % (Auto) Lymph % (Auto) Bent % (Auto) Eos % (Auto) Baso % (Auto) Neut # (Auto) Lymph # (Auto) Bent # (Auto) Eos # (Auto) Baso # (Auto) Total Counted Immature Gran % Nucleated RBC % Immature Gran # Segmented Neutrophils Band Neutrophils Lymphocytes Monocytes Nucleated RBCs # Platelet Estimate Hypochromasia Microcytosis Héctor Cells Morphology Comment ABG pH 7.489 H 7.456 H 7.524 H ABG pCO2 26.4 L 26.0 L 23.1 L ABG pO2 28.2 L* 128.2 H 589.0 H ABG HCO3 19.6 L 17.9 L 18.6 L ABG Total CO2 20.4 L 18.7 L 19.3 L ABG O2 Saturation 63.3 L 98.4 99.7 ABG Base Excess -2.5 -4.6 L -2.8 L Hemoglobin 12.0 L Hematocrit 35.0 L FiO2 40.00 100.00 Sodium Potassium 4.7 Chloride Carbon Dioxide Anion Gap BUN Creatinine GFR Calculation BUN/Creatinine Ratio Glucose 174 H Hemoglobin A1c Calculated Osmolality Lactic Acid Calcium Total Bilirubin AST ALT Alkaline Phosphatase B-Natriuretic Peptide Total Protein Albumin Globulin Albumin/Globulin Ratio Urine Color Urine Appearance Urine pH Ur Specific [place] Urine Protein Urine Glucose (UA) Urine Ketones Urine Blood Urine Nitrate Urine Bilirubin Urine Urobilinogen Urine Leukocytes Urine RBC Urine WBC Urine Bacteria Ur Culture Indicated? 03/27/17 03/28/17 03/28/17 Unknown 03:27 07:43 WBC 17.9 H RBC 4.68 Hgb 10.1 L Hct 33.2 L MCV 70.9 L MCH 22 L MCHC 30.4 L RDW 25.4 H Plt Count 160 Neut % (Auto) 93.9 H Lymph % (Auto) 3.1 L Bent % (Auto) 1.3 L Eos % (Auto) 0.0 Baso % (Auto) 0.1 Neut # (Auto) 16.8 H Lymph # (Auto) 0.6 L Bent # (Auto) 0.2 Eos # (Auto) 0.0 Baso # (Auto) 0.0 Total Counted 100 Immature Gran % 1.6 Nucleated RBC % 0.0 Immature Gran # 0.28 Segmented Neutrophils 95 H Band Neutrophils 3 Lymphocytes 1 L Monocytes 1 L Nucleated RBCs # 0.00 Platelet Estimate Normal Hypochromasia 1+ Microcytosis Slight [place] Cells Slight Morphology Comment ABG pH 7.446 ABG pCO2 29.7 L ABG pO2 212.0 H ABG HCO3 22.2 ABG Total CO2 18.5 L ABG O2 Saturation 100.0 ABG Base Excess -2.7 L Hemoglobin Hematocrit FiO2 60.00 Sodium Potassium Chloride Carbon Dioxide Anion Gap BUN Creatinine GFR Calculation BUN/Creatinine Ratio Glucose Hemoglobin A1c Calculated Osmolality Lactic Acid Calcium Total Bilirubin AST ALT Alkaline Phosphatase B-Natriuretic Peptide Total Protein Albumin Globulin Albumin/Globulin Ratio Urine Color Yellow Urine Appearance Clear Urine pH 5.0 Ur Specific [place] 1.011 Urine Protein Negative Urine Glucose (UA) Negative Urine Ketones Negative Urine Blood Moderate Urine Nitrate Negative Urine Bilirubin Negative Urine Urobilinogen < 2.0 H Urine Leukocytes Negative Urine RBC 2 Urine WBC <1 Urine Bacteria Occasional Ur Culture Indicated? Ordered separately 03/28/17 07:43 WBC RBC Hgb Hct MCV MCH MCHC RDW Plt Count Neut % (Auto) Lymph % (Auto) Bent % (Auto) Eos % (Auto) Baso % (Auto) Neut # (Auto) Lymph # (Auto) Bent # (Auto) Eos # (Auto) Baso # (Auto) Total Counted Immature Gran % Nucleated RBC % Immature Gran # Segmented Neutrophils Band Neutrophils Lymphocytes Monocytes Nucleated RBCs # Platelet Estimate Hypochromasia Microcytosis [place] Cells Morphology Comment ABG pH ABG pCO2 ABG pO2 ABG HCO3 ABG Total CO2 ABG O2 Saturation ABG Base Excess Hemoglobin Hematocrit FiO2 Sodium 140 Potassium 4.9 Chloride 107 Carbon Dioxide 21 Anion Gap 16.9 H BUN 96 H Creatinine 2.70 H GFR Calculation 31 BUN/Creatinine Ratio 35.00 H Glucose 215 H Hemoglobin A1c Calculated Osmolality 314.4 H Lactic Acid Calcium 9.0 Total Bilirubin 2.30 H AST 20 ALT 34 Alkaline Phosphatase 93 B-Natriuretic Peptide Total Protein 7.1 Albumin 2.4 L Globulin 4.7 H Albumin/Globulin Ratio 0.5 L Urine Color Urine Appearance Urine pH Ur Specific [place] Urine Protein Urine Glucose (UA) Urine Ketones Urine Blood Urine Nitrate Urine Bilirubin Urine Urobilinogen Urine Leukocytes Urine RBC Urine WBC Urine Bacteria Ur Culture Indicated? - Reports Microbiology: Microbiology 03/28/17 10:25 Gram Stain - Final Sputum 03/27/17 17:10 MRSA Surveillance Culture - Final Nasal Passage - Both Nares (Mrsa screen) MRSA ISOLATED Please place patient in contact isolation per Infection Control. 03/27/17 Unknown Urine Culture - Preliminary Urine,Voided No Growth at 12 hours. - Diagnostic Findings Procedure: Chest x-ray: image reviewed by me, report reviewed by me (Diffuse increased interstitial markings with increased haziness in both bases right more than left)
--- NOTE | 2017-03-28 12:17 | ECHO Report ---
Derick Phelps 03/28/2017 Exam Date: 09:04 Referring Physician: Technologist: Age: 61 Ht (in): Wt (lb): MExam Location: [facility] Gender: Echo [id number]: Indications: BP: / HR: SinusRhythm: goodTechnical Quality: IMPRESSIONS Overall ejection fraction exceeds 70%. There is near cavity obliteration with each systolic cycle. The patient is in atrial fibrillation diastolic parameters are incomplete. There is moderate tricuspid regurgitation peak velocity 4.1 m/s which corresponds with a right ventricular systolic pressure of 67 mmHg plus right atrial pressure. Biatrial enlargement MEASUREMENTS (Male / Female) Normal Values 2D ECHO LV Diastolic Diameter PLAX 3.4 cm 4.2 - 5.9 / 3.9 - 5.3 cm LV Systolic Diameter PLAX 2.3 cm LV Fractional Shortening PLAX 32.1 % IVS Diastolic Thickness 1.9 cm 0.6 - 1.0 / 0.6 - 0.9 cm LVPW Diastolic Thickness 1.8 cm 0.6 - 1.0 / 0.6 - 0.9 cm Aortic Root Diameter 2.9 cm LA Systolic Diameter LX 4.7 cm 3.0 - 4.0 / 2.7 - 3.8 cm DOPPLER TR Peak Velocity 410.0 cm/s TR Peak Gradient 67.2 mmHg FINDINGS Left Ventricle There is extremely severe left ventricular hypertrophy that appears to be concentric. Overall ejection fraction exceeds 70%. There is near cavity obliteration with each systolic cycle. The patient is in atrial fibrillation diastolic parameters are incomplete Right Ventricle Right Atrium Enlarged Left Atrium Enlarged Mitral Valve There is moderate mitral annular calcification with good bileaflet mitral excursion. There is no mitral stenosis. There is trivial mitral regurgitation Aortic Valve Aortic valve appears to be tricuspid there is no gradient across the valve there is trace aortic insufficiency Tricuspid Valve There is moderate tricuspid regurgitation peak velocity 4.1 m/s which corresponds with a right ventricular systolic pressure of 67 mmHg plus right atrial pressure Pulmonic Valve Pulmonic valve is normal there is no stenosis or insufficiency. Pericardium Pericardium is normal Aorta Limited visualization of the thoracic aorta is normal. Svetlana Gasca (Electronically Signed) 28 March 2017 Final Date: 12:15
--- NOTE | 2017-03-28 12:18 | Cardiology Progress Note ---
Assessment and Plan (1) Hypertension Status: Chronic Current Visit: No Qualifiers: Hypertension type: essential hypertension Qualified Code(s): I10 - Essential (primary) hypertension (2) Venous stasis ulcer Status: Chronic Current Visit: No (3) History of kidney transplant Status: Chronic Current Visit: No (4) Open wound of both legs with complication Status: Chronic Current Visit: No (5) Cerebrovascular accident Status: Chronic Current Visit: No (6) Acute renal failure Status: Acute Assessment and plan: The patient has a significant rise in his creatinine he is status post cadaveric renal transplant this is very concerning nephrology is to see. I am actually concerned about his compliance although he is demonstrated compliance obviously for many years this could be an issue Current Visit: Yes (7) Atrial fibrillation with RVR Status: Acute Assessment and plan: The duration of this is unknown. Is probably secondary to his illness and his biatrial enlargement. I would like to get a transthoracic echo to assess his LV function. Try to obtain records from [facility] Current Visit: Yes (8) Pulmonary hypertension Status: Chronic Assessment and plan: Severe by echo estimated to be 67 mmHg plus the right atrial pressure. IVC was not seen on the transthoracic echo. Current Visit: Yes Cardiology - PN: Subj Interval history: The events of the evening were noted. I discussed with Dr. Burgess, Dr. Zhong and Dr. Atkins. I reviewed the patient's transthoracic echo and he has ejection fraction that is supra physiologic with severe left ventricular hypertrophy that appears to be concentric. There is near cavity obliteration with each systolic cycle. The patient certainly is likely has significant diastolic dysfunction however it cannot be quantitated due to his atrial fibrillation. Exam (Progress Note) - Constitutional Vitals: Period Temp Pulse Resp BP Sys/Dozier Pulse Ox Last 24 Hr 97.4 F-99.8 F 88-126 14-39 88-134/41-109 85-100 General appearance: normal weight - Cardiovascular Cardiovascular exam: Present: irregular rhythm (Rates greater than 100) - GI/Abdominal GI/Abdominal exam: Present: normal bowel sounds (Soft) - Neurological Exam Neurological exam: Present: other (Sedated on the ventilator) - Skin Skin exam: Present: other (Skin breakdown lower extremities is dressed was not examined) Result/EKG - Labs CBC & BMP: 03/28/17 07:43 03/28/17 07:43 Labs: Laboratory Results - last 24 hr 03/27/17 03/27/17 03/27/17 16:42 17:35 17:35 WBC 17.2 H RBC 5.16 Hgb 11.2 L Hct 37.1 L MCV 71.9 L MCH 22 L MCHC 30.2 L RDW 25.6 H Plt Count 184 Neut % (Auto) 89.4 H Lymph % (Auto) 5.0 L Cottle % (Auto) 4.4 Eos % (Auto) 0.2 Baso % (Auto) 0.1 Neut # (Auto) 15.4 H Lymph # (Auto) 0.9 L Cottle # (Auto) 0.8 Eos # (Auto) 0.0 Baso # (Auto) 0.0 Total Counted Immature Gran % 0.9 Nucleated RBC % 0.3 Immature Gran # 0.15 Segmented Neutrophils Band Neutrophils Lymphocytes Monocytes Nucleated RBCs # 0.06 Platelet Estimate Hypochromasia Microcytosis Héctor Cells Morphology Comment ABG pH 7.495 H ABG pCO2 26.6 L ABG pO2 60.4 L ABG HCO3 22.8 ABG Total CO2 18.5 L ABG O2 Saturation 91.7 L ABG Base Excess -1.7 Hemoglobin Hematocrit FiO2 Sodium Potassium Chloride Carbon Dioxide Anion Gap BUN Creatinine GFR Calculation BUN/Creatinine Ratio Glucose Hemoglobin A1c Calculated Osmolality Lactic Acid Calcium Total Bilirubin AST ALT Alkaline Phosphatase B-Natriuretic Peptide 868 H Total Protein Albumin Globulin Albumin/Globulin Ratio Urine Color Urine Appearance Urine pH Ur Specific [place] Urine Protein Urine Glucose (UA) Urine Ketones Urine Blood Urine Nitrate Urine Bilirubin Urine Urobilinogen Urine Leukocytes Urine RBC Urine WBC Urine Bacteria Ur Culture Indicated? 03/27/17 03/27/17 03/27/17 17:35 17:35 17:35 WBC RBC Hgb Hct MCV MCH MCHC RDW Plt Count Neut % (Auto) Lymph % (Auto) Cottle % (Auto) Eos % (Auto) Baso % (Auto) Neut # (Auto) Lymph # (Auto) Cottle # (Auto) Eos # (Auto) Baso # (Auto) Total Counted Immature Gran % Nucleated RBC % Immature Gran # Segmented Neutrophils Band Neutrophils Lymphocytes Monocytes Nucleated RBCs # Platelet Estimate Hypochromasia Microcytosis [place] Cells Morphology Comment ABG pH ABG pCO2 ABG pO2 ABG HCO3 ABG Total CO2 ABG O2 Saturation ABG Base Excess Hemoglobin Hematocrit FiO2 Sodium 138 Potassium 4.6 Chloride 105 Carbon Dioxide 23 Anion Gap 14.6 BUN 99 H Creatinine 2.40 H GFR Calculation 36 BUN/Creatinine Ratio 41.00 H Glucose 141 H Hemoglobin A1c 6.5 H Calculated Osmolality 307.7 H Lactic Acid 2.2 H Calcium 9.3 Total Bilirubin 2.70 H AST 25 ALT 42 Alkaline Phosphatase 101 B-Natriuretic Peptide Total Protein 7.6 Albumin 2.8 L Globulin 4.8 H Albumin/Globulin Ratio 0.5 L Urine Color Urine Appearance Urine pH Ur Specific [place] Urine Protein Urine Glucose (UA) Urine Ketones Urine Blood Urine Nitrate Urine Bilirubin Urine Urobilinogen Urine Leukocytes Urine RBC Urine WBC Urine Bacteria Ur Culture Indicated? 03/27/17 03/27/17 03/27/17 18:01 18:22 19:35 WBC RBC Hgb Hct MCV MCH MCHC RDW Plt Count Neut % (Auto) Lymph % (Auto) Cottle % (Auto) Eos % (Auto) Baso % (Auto) Neut # (Auto) Lymph # (Auto) Cottle # (Auto) Eos # (Auto) Baso # (Auto) Total Counted Immature Gran % Nucleated RBC % Immature Gran # Segmented Neutrophils Band Neutrophils Lymphocytes Monocytes Nucleated RBCs # Platelet Estimate Hypochromasia Microcytosis Héctor Cells Morphology Comment ABG pH 7.489 H 7.456 H 7.524 H ABG pCO2 26.4 L 26.0 L 23.1 L ABG pO2 28.2 L* 128.2 H 589.0 H ABG HCO3 19.6 L 17.9 L 18.6 L ABG Total CO2 20.4 L 18.7 L 19.3 L ABG O2 Saturation 63.3 L 98.4 99.7 ABG Base Excess -2.5 -4.6 L -2.8 L Hemoglobin 12.0 L Hematocrit 35.0 L FiO2 40.00 100.00 Sodium Potassium 4.7 Chloride Carbon Dioxide Anion Gap BUN Creatinine GFR Calculation BUN/Creatinine Ratio Glucose 174 H Hemoglobin A1c Calculated Osmolality Lactic Acid Calcium Total Bilirubin AST ALT Alkaline Phosphatase B-Natriuretic Peptide Total Protein Albumin Globulin Albumin/Globulin Ratio Urine Color Urine Appearance Urine pH Ur Specific [place] Urine Protein Urine Glucose (UA) Urine Ketones Urine Blood Urine Nitrate Urine Bilirubin Urine Urobilinogen Urine Leukocytes Urine RBC Urine WBC Urine Bacteria Ur Culture Indicated? 03/27/17 03/28/17 03/28/17 Unknown 03:27 07:43 WBC 17.9 H RBC 4.68 Hgb 10.1 L Hct 33.2 L MCV 70.9 L MCH 22 L MCHC 30.4 L RDW 25.4 H Plt Count 160 Neut % (Auto) 93.9 H Lymph % (Auto) 3.1 L Cottle % (Auto) 1.3 L Eos % (Auto) 0.0 Baso % (Auto) 0.1 Neut # (Auto) 16.8 H Lymph # (Auto) 0.6 L Cottle # (Auto) 0.2 Eos # (Auto) 0.0 Baso # (Auto) 0.0 Total Counted 100 Immature Gran % 1.6 Nucleated RBC % 0.0 Immature Gran # 0.28 Segmented Neutrophils 95 H Band Neutrophils 3 Lymphocytes 1 L Monocytes 1 L Nucleated RBCs # 0.00 Platelet Estimate Normal Hypochromasia 1+ Microcytosis Slight [place] Cells Slight Morphology Comment ABG pH 7.446 ABG pCO2 29.7 L ABG pO2 212.0 H ABG HCO3 22.2 ABG Total CO2 18.5 L ABG O2 Saturation 100.0 ABG Base Excess -2.7 L Hemoglobin Hematocrit FiO2 60.00 Sodium Potassium Chloride Carbon Dioxide Anion Gap BUN Creatinine GFR Calculation BUN/Creatinine Ratio Glucose Hemoglobin A1c Calculated Osmolality Lactic Acid Calcium Total Bilirubin AST ALT Alkaline Phosphatase B-Natriuretic Peptide Total Protein Albumin Globulin Albumin/Globulin Ratio Urine Color Yellow Urine Appearance Clear Urine pH 5.0 Ur Specific [place] 1.011 Urine Protein Negative Urine Glucose (UA) Negative Urine Ketones Negative Urine Blood Moderate Urine Nitrate Negative Urine Bilirubin Negative Urine Urobilinogen < 2.0 H Urine Leukocytes Negative Urine RBC 2 Urine WBC <1 Urine Bacteria Occasional Ur Culture Indicated? Ordered separately 03/28/17 07:43 WBC RBC Hgb Hct MCV MCH MCHC RDW Plt Count Neut % (Auto) Lymph % (Auto) Cottle % (Auto) Eos % (Auto) Baso % (Auto) Neut # (Auto) Lymph # (Auto) Cottle # (Auto) Eos # (Auto) Baso # (Auto) Total Counted Immature Gran % Nucleated RBC % Immature Gran # Segmented Neutrophils Band Neutrophils Lymphocytes Monocytes Nucleated RBCs # Platelet Estimate Hypochromasia Microcytosis [place] Cells Morphology Comment ABG pH ABG pCO2 ABG pO2 ABG HCO3 ABG Total CO2 ABG O2 Saturation ABG Base Excess Hemoglobin Hematocrit FiO2 Sodium 140 Potassium 4.9 Chloride 107 Carbon Dioxide 21 Anion Gap 16.9 H BUN 96 H Creatinine 2.70 H GFR Calculation 31 BUN/Creatinine Ratio 35.00 H Glucose 215 H Hemoglobin A1c Calculated Osmolality 314.4 H Lactic Acid Calcium 9.0 Total Bilirubin 2.30 H AST 20 ALT 34 Alkaline Phosphatase 93 B-Natriuretic Peptide Total Protein 7.1 Albumin 2.4 L Globulin 4.7 H Albumin/Globulin Ratio 0.5 L Urine Color Urine Appearance Urine pH Ur Specific [place] Urine Protein Urine Glucose (UA) Urine Ketones Urine Blood Urine Nitrate Urine Bilirubin Urine Urobilinogen Urine Leukocytes Urine RBC Urine WBC Urine Bacteria Ur Culture Indicated? - EKG EKG results: interpreted by me EKG shows: atrial fibrillation Quality Measures - VTE Contraindication to Pharmacological VTE Prophylaxis: Already on Theraputic Agent , No Prophylaxis Needed Contraindication to Mechanical VTE Prophylaxis: Vascular Ulceration
[2017-03-28 12:55] LABS: Apearance,Urine CLEAR (Clear); Bacteria,Urine Occasional /HPF (Few); Bilirubin,Urine Negative (Negative); Blood, Urine Small mg/dL (Negative); Glucose,Urine (UA) Negative (Negative); Ketones,Urine Negative (Negative); Mucus,Urine Occasional /LPF (Occasional); Nitrite,Urine Negative (Negative); Protein,Urine Negative; RBC,Urine 1 /HPF (0-4); Squamous Epithelial Cell,Urine Occasional /HPF (0-10); Uric Acid Crystals,Urine Occasional /HPF (<1); Urine Color Yellow (Yellow); Urine Specific Gravity 1.014 (1.001-1.035); Urine Urobilinogen < 2.0 EU/DL (0.2-1.0); WBC,Urine 5 /HPF (0-6)
--- NOTE | 2017-03-28 13:45 | General Surgery Consult Note ---
Assessment and Plan - Time spent with patient Time spent with patient: Greater than 30 minutes (1) Open wound of both legs with complication Status: Chronic Assessment and plan: Impression: 1. Large open wound of the posterior and lateral aspect of the left leg 2. Ulcer of the medial malleolus of the right ankle 3. Chronic venous stasis disease with ulceration 4. Underlying peripheral arterial disease lower extremities. 5. Respiratory failure etiology unclear. 6. Previous CVA with some weakness left lower extremity. Plan: Start local wound care to the wounds at this time. 2. Culture the wound beds for the possibility that we could get additional products to this leg to aid in healing. 3. We will hopefully get some improvement in the creatinine so that maybe we could consider an arteriogram get an idea what is going on the legs. Current Visit: No History of Present Illness Chief complaint: Bilateral leg wounds History of present illness: Mr. Phelps is a 61 year old male -[place] who we saw initially at rehab center for his leg wounds. Apparently he develops some sort of problem with his legs requiring some extensive debridement of the left lower extremity and now has a good bit of granulating tissue in the back part of his leg and some changes in skin on the lateral aspect of the leg. While at rehab we managed to get some edema of the legs get the wound to flatten out significantly and to clean up the base of it at this time. He was then following a stroke for some additional rehab. He apparently went home and now returns with a respiratory arrest for which they got him on the ventilator. We are asked to follow-up on his legs at this time. Evaluation of his lower extremity at the rehab center indicated that he has some underlying peripheral arterial disease but were not able to get an arteriogram due to his creatinine being 2.4. His vascular studies did show decrease in pressure flow changes in those lower extremities. Home Medications Medication Instructions Recorded Confirmed Type Gabapentin 300 mg PO TID 03/11/17 03/27/17 History Potassium Chloride Cap/Tab [K Dur] 40 meq PO DAILY 03/11/17 03/27/17 History Tamsulosin [Flomax] 1 capsule PO DAILY 03/11/17 03/27/17 History Torsemide 100 mg PO DAILY 03/11/17 03/27/17 History Pentoxifylline [TRENtal] 400 mg PO TID tablet 03/23/17 03/27/17 Rx Skin Healing Oint (Aquaphor) 1 applic TOP DAILY applic 03/23/17 03/27/17 Rx [Aquaphor] Apixaban [Eliquis] 2.5 mg PO BID 03/27/17 03/27/17 History Furosemide Tab [Lasix Tab] 80 mg PO BID 03/27/17 03/27/17 History Metoprolol Tartrate Tab [Lopressor 50 mg PO BID 03/27/17 03/27/17 History Tab] Minoxidil 20 mg PO BID 03/27/17 03/27/17 History Mycophenolate Mofetil 500 mg PO BID 03/27/17 03/27/17 History Spironolactone 50 mg PO DAILY 03/27/17 03/27/17 History predniSONE TAB [PredniSONE] 10 mg PO DAILY 03/27/17 03/27/17 History Allergies Allergy/AdvReac Type Severity Reaction Status Date / Time lactose Allergy Abdominal Verified 03/11/17 18:28 Pain Medical,Surgical,& Family Hx - Medical History Cardio: History of: Cardiac Dysrhythmia (Atrial fibrillation, new onset), CHF ( Followed at [facility]), Hypertension, PVD (with stasis ulcers on bilateral lower extremities) Neurology: History of: Cerebrovascular Accident Rheumatology: History of;: Gout Respiratory: History of: Pneumonia Renal: History of: Renal Failure, Renal Problems (Status post renal transplant, cadaveric 20 years ago, [facility]) Genitourinary: History of: Problems (has adams catheter for bladder training. ) Gastrointestinal: History of: GERD Musculoskeletal: History of: Musculoskeletal Problems (Contracted left hand.) - Surgical History Thoracic Surgeries: Surgical HX of;: Organ Transplant (renal transplant) Orthopedic Surgeries: Surgical HX of;: Orthopedic Surgery (rotator cuff repair) - Family History Family History: Reports;: Family Diabetes, Family Hypertension - Social History Smoking Status: Never smoker Frequency of Alcohol Use: None Type of Drug Use: None ROS unobtainable: due to endotracheal tube Exam - Constitutional Vitals: Period Temp Pulse Resp BP Sys/Dozier Pulse Ox Last 24 Hr 97.4 F-99.8 F 88-126 14-39 88-134/41-109 85-100 General appearance: severe distress - Head Head exam: Present: normal inspection - ENT ENT exam: Present: normal exam - Neck Neck exam: Present: normal inspection - Respiratory Respiratory exam: Present: rales, rhonchi - Cardiovascular Cardiovascular exam: Present: RRR - GI/Abdominal GI/Abdominal exam: Present: hypoactive bowel sounds, soft. Absent: distended, guarding - Extremities Exam Extremities exam: Present: other (Left lower extremity has a large wound on the posterior aspect of the leg at the level of the ankle with a good bit of thick granulating tissue. This extends around the legs about care home into the left lateral part of the leg with some loose skin present in that area and spotty ulcerations along the lateral aspect of the leg. No gross infection the granulating tissue looks clean and in good condition. No palpable pulses in the foot. The right lower extremity has an ulcer at the medial malleolus that is fairly clean little bit of slough over this time. No other lesions or ulcers are seen at this time.) - Back Exam Back exam: Present: normal inspection - Neurological Exam Neurological exam: Present: altered - Skin Skin exam: Present: normal color, warm, dry Quality Measures - VTE Contraindication to Pharmacological VTE Prophylaxis: Already on Theraputic Agent , No Prophylaxis Needed Contraindication to Mechanical VTE Prophylaxis: Vascular Ulceration Results - Labs CBC & BMP: 03/28/17 07:43 03/28/17 07:43 Lab Results: I have reviewed the past 24 hour labs
[2017-03-28] MEDS ORDERED: DEXTROSE 50% 25 GM/50 ML VIAL IV PRN (14:27)
[2017-03-28] MEDS ORDERED: GLUCAGON 1 MG VIAL IM PRN (14:27)
[2017-03-28] MEDS: DILTIAZEM INJ 100 MG in SODIUM CHLORIDE 0.9% 100 ML IV SCH ×2 (15:19→20:07)
[2017-03-28] MEDS: GENTAMICIN 0.1% OINT 15 GM TUBE TOP SCH ×2 (15:19→21:24)
[2017-03-28] MEDS: INSULIN REGULAR 100 UNIT/ML SUBCUT SCH (18:04)
[2017-03-28] MEDS ORDERED: cycloSPORINE (MODIFIED) 100 MG CAPSULE PO ONE (21:00)
[2017-03-28] MEDS: PANTOPRAZOLE 40 MG VIAL IV SCH (21:18)
[2017-03-28] MEDS: ACETIC ACID 0.25% IRRIGATION 1,000 ML BOTTLE IRRIG SCH (21:24)
[2017-03-29] MEDS: INSULIN REGULAR 100 UNIT/ML SUBCUT SCH ×4 (00:01→18:01)
[2017-03-29] MEDS: ALBUTEROL/IPRATROPIUM 3 ML NEB RESP TX SCH ×4 (00:41→19:19)
[2017-03-29] MEDS: MIDAZOLAM 100 MG in SODIUM CHLORIDE 0.9% 80 ML IV SCH (01:42)
[2017-03-29] MEDS: PIPERACILLIN/TAZOBACTAM 3,375 MG in SODIUM CHLORIDE 0.9% 100 ML IV SCH ×3 (01:56→17:04)
[2017-03-29] MEDS: DILTIAZEM INJ 100 MG in SODIUM CHLORIDE 0.9% 100 ML IV SCH ×4 (02:48→18:03)
[2017-03-29 03:01] LABS: ABG Base Excess -2.8 MMOL/L (-2.5-2.5); ABG HCO3 22.1 MMOL/L (20-26); ABG PCO2 30.3 MM HG (35-48); ABG PH 7.441 (7.35-7.45); Allen Test Positive; Pt O2 Delivery Device Ventilator
[2017-03-29] MEDS: methylPREDNISolone SOD SUC 40 MG/1 ML VIAL IV SCH ×3 (05:06→22:05)
[2017-03-29 06:00] LABS: Basophils % 0.1 % (0.0-0.8); Hematocrit 32.5 VOL% (42.0-52.0); Hemoglobin 10.1 GM/DL (14.0-18.0); Immature Granulocytes % 0.7 %; Immature Granulocytes Absolute 0.09 #; Lymphocytes # 0.2 10*3/uL (1.4-4.0); Lymphocytes % 1.6 % (21.2-54.2); Mean Corpuscular HGB Conc 31.1 GM/DL (32-36); Mean Corpuscular Hemoglobin 22 PG (27-34); Mean Corpuscular Volume 70.5 FL (87-102); Monocytes # 0.3 10*3/uL (0.11-0.8); Monocytes % 2.5 % (1.7-12.7); NRBC # 0.03 10*3/uL; Neutrophils # 12.7 10*3/uL (1.4-7.4); Neutrophils % 95.1 % (38.7-73.9); Platelet Count 177 T/CUMM (130-400); Red Blood Count 4.61 MC/CUMM (3.8-5.5); Red Cell Distribution Width 25.6 % (9.3-17.3); White Blood Count 13.4 T/CUMM (4-12)
[2017-03-29 06:10] LABS: Calcium 8.7 MG/DL (8.5-10.1); Osmolality,Calculated 320.7 MOS/KG (273-304); Potassium 3.5 MMOL/L (3.5-5.1)
[2017-03-29 06:18] LABS: Magnesium 3.6 MG/DL (1.8-2.4); Phosphorous 5.9 MG/DL (2.5-4.9); Prealbumin 46.3 MG/DL (20-40)
[2017-03-29 06:36] LABS: Hypochromasia 1+; Lymphocytes 2 % (20-55); Microcytosis Slight; Ovalocytes Slight; Platelet Estimate Normal; Segmented Neutrophils 97 % (50-85); Total Cells Counted 100
--- NOTE | 2017-03-29 07:31 | XRay Report ---
Exam: XR chest 1V portable Date: 03/29/2017 4:00 AM Indication: CHF Comparison: 03/28/2017 Technical: AP Findings: Endotracheal tube and nasogastric tube are present. Cardiac enlargement is present. Alveolar densities are present in the lung pickens with minimal fluid along the minor fissure. This slightly asymmetric densities on the right as compared to the left. No pneumothorax. ASVD is present. Impression: 1. Cardiomegaly with persistent alveolar density scattered in the lung pickens right greater than left suggests a component of CHF with small effusions bilaterally 2. Stable position of life-support tubing. PROCEDURE INTERPRETED AT [facility] DEPARTMENT OF RADIOLOGY Final Report Signed by: Dr. Lupillo Ghosh
--- NOTE | 2017-03-29 08:49 | Pulmonology Progress Note ---
Pulmonary - PN: Subj Interval history: The patient is a 61-year-old black man that has had a previous kidney transplant years ago. He has a history of hypertension and atrial fibrillation along with some chronic heart disease. He comes in with respiratory distress and his x-ray looks like pulmonary edema. He is on the ventilator and is fairly stable. His oxygenation is better and his x-ray is improving. He does have reasonable output although he has chronic renal insufficiency. He does not like he is more stable now. Exam (Progress Note) - Constitutional Vitals: Period Temp Pulse Resp BP Sys/Dozier Pulse Ox Last 24 Hr 97.5 F-98.6 F 91-132 13-27 88-119/41-82 96-100 Exam: General appearance: normal weight, no acute distress (The patient is sedated on the ventilator. His vital signs been stable.) - Head Head exam: Present: normal inspection, normocephalic - Eye Eye exam: Present: EOMI. Absent: scleral icterus Pupils: Present: JAMILA - ENT ENT exam: Present: other (ET tube is in good position.) - Neck Neck exam: Present: normal inspection. Absent: lymphadenopathy, thyromegaly - Respiratory Respiratory exam: Present: He has good breath sounds bilaterally although he has some minimal rhonchi still. - Cardiovascular Cardiovascular exam: Present: irregular rhythm, systolic murmur. He still has a tachycardia at times. - GI/Abdominal GI/Abdominal exam: Present: normal bowel sounds, soft. Absent: organomegaly, tenderness - Extremities Exam Extremities exam: Present: edema, other (He has wounds on his legs and these are wrapped.) - Neurological Exam Neurological exam: Present: other (Patient is sedated at present.) - Psychiatric Psychiatric exam: Absent: anxious - Skin Skin exam: Present: warm, dry Results - Labs CBC & BMP: 03/29/17 04:31 03/29/17 04:31 Labs: His PO2 is 160 with a PCO2 of 30 and a pH of 7.44 - Diagnostic Findings Procedure: Chest x-ray: image reviewed by me, report reviewed by me (Chest x- ray shows some improvement in the pulmonary edema.) Assessment and Plan (1) Acute pulmonary edema Status: Acute Assessment and plan: The patient's x-ray looks like acute pulmonary edema and his oxygenation is better on the ventilator. He continues to improve. We will continue to wean. Current Visit: Yes (2) Hypertension Status: Chronic Assessment and plan: Patient has a long history of hypertensive cardiovascular disease. Current Visit: No Qualifiers: Hypertension type: essential hypertension Qualified Code(s): I10 - Essential (primary) hypertension (3) History of kidney transplant Status: Chronic Assessment and plan: Patient has a long history of a kidney transplant. His creatinine is down to 2.4. Current Visit: No (4) Open wound of both legs with complication Status: Chronic Assessment and plan: The patient has some venous stasis disease and is followed by surgery. Current Visit: No (5) Cerebrovascular accident Status: Chronic Assessment and plan: Patient apparently had a CVA in the past. Current Visit: No (6) Pneumonia Status: Acute Assessment and plan: The patient has an elevated white count and is covered with antibiotics. Most of this is probably pulmonary edema however. So far nothing is growing on culture. Current Visit: Yes (7) Atrial fibrillation with RVR Status: Acute Assessment and plan: The patient's heart rate is under better control. He is still on a Cardizem infusion. Current Visit: Yes
[2017-03-29] MEDS ORDERED: FUROSEMIDE 40 MG/4 ML VIAL IV ONE (08:51)
[2017-03-29] MEDS: METOPROLOL TARTRATE 25 MG TABLET PO SCH ×2 (09:02→22:03)
[2017-03-29] MEDS: MYCOPHENOLATE MOFETIL 250 MG CAPSULE PO SCH ×2 (09:02→22:04)
[2017-03-29] MEDS: APIXABAN 2.5 MG TABLET PO SCH ×2 (09:02→22:03)
[2017-03-29] MEDS: TAMSULOSIN 0.4 MG CAPSULE PO SCH (09:02)
[2017-03-29] MEDS: PENTOXIFYLLINE 400 MG TABLET PO SCH ×3 (09:02→22:03)
[2017-03-29] MEDS: GABAPENTIN 300 MG CAPSULE PO SCH ×3 (09:03→22:03)
[2017-03-29] MEDS: CYCLOSPORINE 25 MG PO SCH ×2 (09:07→22:02)
[2017-03-29] MEDS: cycloSPORINE (MODIFIED) 100 MG CAPSULE PO SCH ×2 (09:07→22:02)
--- NOTE | 2017-03-29 09:31 | Physician Query Form ---
CLICK EDIT DOCUMENT TO SELECT QUERY ANSWER --> OK --> SIGN Stefanie Johnson RN, CCDS Certified Clinical Logging Assistant W) [phone] (f) [phone] [email or web address] PROVIDERS: Make your selection(s) from the choices in EACH section by typing an "x" and enter comments in the comment section. Please use your independent medical judgment in providing your response. This request does not imply that any particular answer is desired or expected. CLINICAL INDICATORS: (Providers should not edit this section) The medical record indicates that the patient was admitted with pneumonia, CHF, pulmonary edema (acute), BNP 868#, AND the patient was treated with Lasix. ---- "Overall ejection fraction exceeds 70%" Please provide further specificity regarding CHF. ACUITY: ( ) Acute ( ) Chronic ( x) Acute on Chronic ( ) Clinically unable to determine TYPE: ( ) Systolic (HFrEF - heart failure with reduced systolic function/EF) ( x) Diastolic (HFpEF - heart failure with preserved systolic function/EF) ( ) Combined Systolic/Diastolic ( ) Other, please specify: ( ) Clinically unable to determine ( ) The patient does NOT have CHF COMMENTS: PLEASE ALSO DOCUMENT RESPONSE IN PROGRESS NOTES AND/OR DISCHARGE SUMMARY Use of terms such as suspected, likely, or probable (associated with a specific diagnosis that is being evaluated, monitored, or treated as if it exists) are acceptable and can be restated in the discharge summary if not ruled out. MTDD
--- NOTE | 2017-03-29 10:35 | General Surgery Progress Note ---
Assessment and Plan - Time spent with patient Time spent with patient: Less than 30 minutes (1) Open wound of both legs with complication Status: Chronic Assessment and plan: Impression: 1. Large open wound of the posterior and lateral aspect of the left leg 2. Ulcer of the medial malleolus of the right ankle 3. Chronic venous stasis disease with ulceration 4. Underlying peripheral arterial disease lower extremities. 5. Respiratory failure etiology unclear. 6. Previous CVA with some weakness left lower extremity. Plan: Start local wound care to the wounds at this time. 2. Culture the wound beds for the possibility that we could get additional products to this leg to aid in healing. 3. We will hopefully get some improvement in the creatinine so that maybe we could consider an arteriogram get an idea what is going on the legs. 03/29/2017. Wound care has begun on the legs try to get him cleaned up. We will try to get some good cultures at some point and may want to look at her [employer]. Patient is on ventilator still at this time. Will see if he qualifies for [facility] Current Visit: No Subjective Patient reports: Present: no new complaints, afebrile, other (Still on the ventilator) Exam - Constitutional Vitals: Period Temp Pulse Resp BP Sys/Dozier Pulse Ox Last 24 Hr 97.5 F-98.6 F 91-132 12-27 90-119/41-82 96-100 General appearance: mild distress - Head Head exam: Present: normal inspection - ENT ENT exam: Present: normal exam - Neck Neck exam: Present: normal inspection - Respiratory Respiratory exam: Present: rales - Cardiovascular Cardiovascular exam: Present: RRR - GI/Abdominal GI/Abdominal exam: Present: hypoactive bowel sounds, soft - Extremities Exam Extremities exam: Present: other (Wound care has begun with compressive dressings wounds are stable) - Back Exam Back exam: Present: normal inspection - Neurological Exam Neurological exam: Present: alert, oriented X3, CN II-XII intact - Skin Skin exam: Present: normal color, warm, dry Results - Labs CBC & BMP: 03/29/17 04:31 03/29/17 04:31 Lab Results: I have reviewed the past 24 hour labs Quality Measures - VTE Contraindication to Pharmacological VTE Prophylaxis: Already on Theraputic Agent , No Prophylaxis Needed Contraindication to Mechanical VTE Prophylaxis: Vascular Ulceration
--- NOTE | 2017-03-29 10:53 | Hospitalist Progress Note ---
Assessment and Plan (1) Respiratory failure, acute Status: Acute Assessment and plan: 1)acute respiratory failure, hypoxic- stable on vent. diuresing his pulmonary edema. Will try CPAP today. 2)sepsis- source pneumonia v LE wounds. On broad antibiotics vanc and Zosyn that should cover the positive UCx and sputum cultures. WBC down. afebrile. Has not required pressors. 3)NANNETTE- S/P renal transplant 20 years ago. He has good UOP and his creatinine has coem down to 2.3, baseline in the 1.8. He is on IV steroids, cyclosporine and Cellcept. Continue steroids at 60mg IV q8 for now but consider decreasing tomorrow. 4)heart failure- pHTN and prob diastolic dysfunction. records from [facility] pending. Lasix started, Also on ELiquis for chronic afib, metoprolol. Dr Gasca following. 5)nutrition- tolerating tube feeds. Current Visit: Yes (2) History of kidney transplant Status: Chronic Current Visit: No (3) Open wound of both legs with complication Status: Chronic Current Visit: No (4) Cerebrovascular accident Status: Chronic Current Visit: No (5) Pneumonia Status: Acute Current Visit: Yes (6) Acute renal failure Status: Acute Current Visit: Yes (7) Atrial fibrillation with RVR Status: Acute Current Visit: Yes (8) Pulmonary hypertension Status: Chronic Current Visit: Yes (9) Acute pulmonary edema Status: Acute Current Visit: Yes (10) Sepsis Status: Acute Current Visit: Yes Hospitalist: Subjective Interval history: MR Phelps has remained stable on the vent with good oxygentation. He had more rapid afib and his dilt was restarted last night. His heart rate is around 90 now. His BP is in molina 100s and Dr Guidry has ordered lasix. Exam - Constitutional Vitals: Period Temp Pulse Resp BP Sys/Dozier Pulse Ox Last 24 Hr 97.5 F-98.6 F 91-132 12-27 90-119/41-82 96-100 General appearance: normal weight, no acute distress - Head Head exam: Present: normocephalic, atraumatic - Eye Eye exam: Present: EOMI. Absent: scleral icterus - Respiratory Respiratory exam: Present: rales - Cardiovascular Cardiovascular exam: Present: irregular rhythm - GI/Abdominal GI/Abdominal exam: Present: normal bowel sounds, soft. Absent: tenderness - Extremities Exam Extremities exam: Present: edema - Neurological Exam Neurological exam: Present: other (sedated on vent) - Skin Skin exam: Present: warm, dry Results - Labs CBC & BMP: 03/29/17 04:31 03/29/17 04:31 Lab Results: I have reviewed the past 24 hour labs Quality Measures - VTE Contraindication to Pharmacological VTE Prophylaxis: Already on Theraputic Agent , No Prophylaxis Needed Contraindication to Mechanical VTE Prophylaxis: Vascular Ulceration
[2017-03-29] MEDS: GENTAMICIN 0.1% OINT 15 GM TUBE TOP SCH (11:32)
[2017-03-29] MEDS: SKIN HEALING OINT (AQUAPHOR) 50 GM TUBE TOP SCH (11:33)
[2017-03-29] MEDS: ACETIC ACID 0.25% IRRIGATION 1,000 ML BOTTLE IRRIG SCH (11:34)
--- NOTE | 2017-03-29 13:15 | Cardiology Progress Note ---
Benja Yu Vanessa RN, am scribing for, and in the presence of, Svetlana Gasca DO 13 :15. Assessment and Plan - Time spent with patient Time spent with patient: Greater than 30 minutes (1) Atrial fibrillation with RVR Status: Acute Assessment and plan: Atrial fibrillation with RVR most likely secondary to acute illness. Echocardiogram shows severe LVH with preserved EF, 70%. Working toward enteral medications will increase his beta-mary tomorrow if he tolerates the change to enteral Cardizem. Watch closely for hypotension. His heart rate appears to be appropriate for the current clinical setting Current Visit: Yes (2) Acute renal failure Status: Acute Assessment and plan: Patient has a history of cadaveric renal transplant. Nephrology has been consulted, and they are following. Patient now has had a significant rise in his creatinine this admission in addition to acute pulmonary edema and atrial fibrillation with RVR. Current Visit: Yes (3) Pulmonary hypertension Status: Chronic Assessment and plan: Moderate pulmonary hypertension per echocardiogram with RVSP 67 mmHg. Current Visit: Yes (4) Cerebrovascular accident Status: Chronic Assessment and plan: History of CVA. Patient has not had any clinical findings significant for neurological changes. Current Visit: No (5) History of kidney transplant Status: Chronic Assessment and plan: Cadaveric renal transplant approximately 20 years ago at [facility] in [place]. Current Visit: No (6) Hypertension Status: Chronic Assessment and plan: Stable. Borderline hypotensive at times. Continue to monitor closely, and adjust medication regimen as indicated. Current Visit: No Qualifiers: Hypertension type: essential hypertension Qualified Code(s): I10 - Essential (primary) hypertension (7) Open wound of both legs with complication Status: Chronic Assessment and plan: Presented with ulcerated open wounds of bilateral lower extremities. General surgery has been consulted, and Dr. Davis has evaluated. Current Visit: No (8) Venous stasis ulcer Status: Chronic Assessment and plan: Defer to surgical services. Current Visit: No Cardiology - PN: Subj Interval history: PRIMARY TEST LEAD: DR. MILTON ([facility]) SUMMARY: Mr. Phelps is a 61-year-old black male whose past medical history includes hypertension, PVD, CVA, renal transplant 20 years ago at [facility], CHF. Patient was admitted to [facility]'s ICU on the evening of March 27 and transfer from [facility] with acute dyspnea with pulmonary edema, atrial fibrillation with RVR. Patient was also noted to have venous stasis ulcers with open wounds of bilateral lower extremities. After admission to the ICU, patient had increasing respiratory difficulty, and he was intubated. He is receiving treatment for pulmonary edema, acute renal failure, and pneumonia. Cardiology was consulted for assistance in management of pulmonary edema with history of CHF. Echocardiogram obtained on March 27 with severe LVH, preserved LV function , EF 70%, moderate pulmonary hypertension with RVSP 67 mmHg, and probable significant diastolic dysfunction but could not be quantitated due to atrial fibrillation. March: Mr. Phelps remains intubated and sedated in the ICU this morning. Atrial fibrillation per color television console monitor with occasional PVC and ventricular response 110-125. He is being maintained with IV Cardizem at 15 mg/hr. BP is stable, and he is not requiring vasopressors for support. Labs reviewed. WBC is improved to 13,400. Creatinine with slight improvement in 2.4 today. K+ 3.5. Hypermagnesemic with MG +3.6. Fluid balance negative. Chest x-ray is slightly improved today. Patient has an NG tube will try to convert IV medications to enteral as much as tolerated. We will initiate enteral Cardizem. Exam (Progress Note) - Constitutional Vitals: Period Temp Pulse Resp BP Sys/Dozier Pulse Ox Last 24 Hr 97.4 F-98.6 F 91-132 13-27 88-119/41-82 96-100 General appearance: no acute distress, other (Intubated and sedated) - Head Head exam: Absent: abrasion, contusion, hematoma - Eye Eye exam: Absent: periorbital swelling, scleral icterus Pupils: Present: JAMILA - Neck Neck exam: Absent: tenderness - Respiratory Respiratory exam: Present: rales, rhonchi (Scattered throughout) - Cardiovascular Cardiovascular exam: Present: irregular rhythm, other (Murmur without change). Absent: systolic murmur - GI/Abdominal GI/Abdominal exam: Present: normal bowel sounds, soft. Absent: distended, firm - Extremities Exam Extremities exam: Present: normal capillary refill, edema (Trace pretibial edema ). Absent: full ROM, calf tenderness - Neurological Exam Neurological exam: Present: other (Unable to assess as patient is intubated and sedated) - Psychiatric Psychiatric exam: Present: other (Intubated with mechanical ventilation) - Skin Skin exam: Present: warm, dry, other (Open wounds bilateral lower extremities; areas are currently wrapped with dressings). Absent: cyanosis, diaphoretic, rash Result/EKG - Labs CBC & BMP: 03/29/17 04:31 03/29/17 04:31 Lab Results: I have reviewed the past 24 hour labs Labs: Laboratory Results - last 24 hr 03/28/17 03/28/17 03/28/17 07:43 07:43 12:05 WBC 17.9 H RBC 4.68 Hgb 10.1 L Hct 33.2 L MCV 70.9 L MCH 22 L MCHC 30.4 L RDW 25.4 H Plt Count 160 Neut % (Auto) 93.9 H Lymph % (Auto) 3.1 L [place] % (Auto) 1.3 L Eos % (Auto) 0.0 Baso % (Auto) 0.1 Neut # (Auto) 16.8 H Lymph # (Auto) 0.6 L [place] # (Auto) 0.2 Eos # (Auto) 0.0 Baso # (Auto) 0.0 Total Counted 100 Immature Gran % 1.6 Nucleated RBC % 0.0 Immature Gran # 0.28 Segmented Neutrophils 95 H Band Neutrophils 3 Lymphocytes 1 L Monocytes 1 L Nucleated RBCs # 0.00 Platelet Estimate Normal Hypochromasia 1+ Microcytosis Slight Ovalocytes [place] Cells Slight Morphology Comment ABG pH ABG pCO2 ABG pO2 ABG HCO3 ABG Total CO2 ABG O2 Saturation ABG Base Excess FiO2 Sodium 140 Potassium 4.9 Chloride 107 Carbon Dioxide 21 Anion Gap 16.9 H BUN 96 H Creatinine 2.70 H GFR Calculation 31 BUN/Creatinine Ratio 35.00 H Glucose 215 H POC Glucose Calculated Osmolality 314.4 H Calcium 9.0 Phosphorus Magnesium Total Bilirubin 2.30 H AST 20 ALT 34 Alkaline Phosphatase 93 Total Protein 7.1 Albumin 2.4 L Globulin 4.7 H Albumin/Globulin Ratio 0.5 L Prealbumin Urine Color Yellow Urine Appearance Clear Urine pH 5.0 Ur Specific Landing 1.014 Urine Protein Negative Urine Glucose (UA) Negative Urine Ketones Negative Urine Blood Small Urine Nitrate Negative Urine Bilirubin Negative Urine Urobilinogen < 2.0 H Urine Leukocytes Trace Urine RBC 1 Urine WBC 5 Ur Squamous Epith Cells Occasional Uric Acid Crystals Occasional Urine Bacteria Occasional Urine Mucus Occasional Ur Culture Indicated? Not indicated Random Vancomycin 03/28/17 03/28/1703/28/17 17:57 21:14 23:58 WBC RBC Hgb Hct MCV MCH MCHC RDW Plt Count Neut % (Auto) Lymph % (Auto) [place] % (Auto) Eos % (Auto) Baso % (Auto) Neut # (Auto) Lymph # (Auto) [place] # (Auto) Eos # (Auto) Baso # (Auto) Total Counted Immature Gran % Nucleated RBC % Immature Gran # Segmented Neutrophils Band Neutrophils Lymphocytes Monocytes Nucleated RBCs # Platelet Estimate Hypochromasia Microcytosis Ovalocytes [place] Cells Morphology Comment ABG pH ABG pCO2 ABG pO2 ABG HCO3 ABG Total CO2 ABG O2 Saturation ABG Base Excess FiO2 Sodium Potassium Chloride Carbon Dioxide Anion Gap BUN Creatinine GFR Calculation BUN/Creatinine Ratio Glucose POC Glucose 249 H 247 H Calculated Osmolality Calcium Phosphorus Magnesium Total Bilirubin AST ALT Alkaline Phosphatase Total Protein Albumin Globulin Albumin/Globulin Ratio Prealbumin Urine Color Urine Appearance Urine pH Ur Specific Landing Urine Protein Urine Glucose (UA) Urine Ketones Urine Blood Urine Nitrate Urine Bilirubin Urine Urobilinogen Urine Leukocytes Urine RBC Urine WBC Ur Squamous Epith Cells Uric Acid Crystals Urine Bacteria Urine Mucus Ur Culture Indicated? Random Vancomycin 8.7 03/29/17 03/29/17 03/29/17 02:55 04:31 04:31 WBC 13.4 H RBC 4.61 Hgb 10.1 L Hct 32.5 L MCV 70.5 L MCH 22 L MCHC 31.1 L RDW 25.6 H Plt Count 177 Neut % (Auto) 95.1 H Lymph % (Auto) 1.6 L [place] % (Auto) 2.5 Eos % (Auto) 0.0 Baso % (Auto) 0.1 Neut # (Auto) 12.7 H Lymph # (Auto) 0.2 L [place] # (Auto) 0.3 Eos # (Auto) 0.0 Baso # (Auto) 0.0 Total Counted 100 Immature Gran % 0.7 Nucleated RBC % 0.2 Immature Gran # 0.09 Segmented Neutrophils 97 H Band Neutrophils Lymphocytes 2 L Monocytes 1 L Nucleated RBCs # 0.03 Platelet Estimate Normal Hypochromasia 1+ Microcytosis Slight Ovalocytes Slight Héctor Cells Morphology Comment ABG pH 7.441 ABG pCO2 30.3 L ABG pO2 160.0 H ABG HCO3 22.1 ABG Total CO2 19.0 L ABG O2 Saturation 100.0 ABG Base Excess -2.8 L FiO2 40.00 Sodium 145 Potassium 3.5 Chloride 111 H Carbon Dioxide 21 Anion Gap 16.5 H BUN 90 H Creatinine 2.40 H GFR Calculation 36 BUN/Creatinine Ratio 37.00 H Glucose 192 H POC Glucose Calculated Osmolality 320.7 H Calcium 8.7 Phosphorus Magnesium Total Bilirubin AST ALT Alkaline Phosphatase Total Protein Albumin Globulin Albumin/Globulin Ratio Prealbumin Urine Color Urine Appearance Urine pH Ur Specific Landing Urine Protein Urine Glucose (UA) Urine Ketones Urine Blood Urine Nitrate Urine Bilirubin Urine Urobilinogen Urine Leukocytes Urine RBC Urine WBC Ur Squamous Epith Cells Uric Acid Crystals Urine Bacteria Urine Mucus Ur Culture Indicated? Random Vancomycin 03/29/17 04:31 WBC RBC Hgb Hct MCV MCH MCHC RDW Plt Count Neut % (Auto) Lymph % (Auto) [place] % (Auto) Eos % (Auto) Baso % (Auto) Neut # (Auto) Lymph # (Auto) [place] # (Auto) Eos # (Auto) Baso # (Auto) Total Counted Immature Gran % Nucleated RBC % Immature Gran # Segmented Neutrophils Band Neutrophils Lymphocytes Monocytes Nucleated RBCs # Platelet Estimate Hypochromasia Microcytosis Ovalocytes Héctor Cells Morphology Comment ABG pH ABG pCO2 ABG pO2 ABG HCO3 ABG Total CO2 ABG O2 Saturation ABG Base Excess FiO2 Sodium Potassium Chloride Carbon Dioxide Anion Gap BUN Creatinine GFR Calculation BUN/Creatinine Ratio Glucose POC Glucose Calculated Osmolality Calcium Phosphorus 5.9 H Magnesium 3.6 H Total Bilirubin AST ALT Alkaline Phosphatase Total Protein Albumin Globulin Albumin/Globulin Ratio Prealbumin 46.3 H Urine Color Urine Appearance Urine pH Ur Specific Landing Urine Protein Urine Glucose (UA) Urine Ketones Urine Blood Urine Nitrate Urine Bilirubin Urine Urobilinogen Urine Leukocytes Urine RBC Urine WBC Ur Squamous Epith Cells Uric Acid Crystals Urine Bacteria Urine Mucus Ur Culture Indicated? Random Vancomycin - Diagnostic Findings Procedure: Chest x-ray: image reviewed by me, report reviewed by me - EKG EKG results: interpreted by me, no acute changes EKG shows: atrial fibrillation (Occasional PVC) Quality Measures - VTE Contraindication to Pharmacological VTE Prophylaxis: Already on Theraputic Agent , No Prophylaxis Needed Contraindication to Mechanical VTE Prophylaxis: Vascular Ulceration Elo Yu Shea, DO, personally performed the services described in this documentation, ascribed by Leatha Yousif RN in my presence, and it is both accurate and complete 315 .
--- NOTE | 2017-03-29 14:26 | Nephrology Progress Note ---
Nephrology - PN: Subj Interval history: Patient is intubated and sedate. Physical exam general the patient is chronically ill-appearing, heart is regular rate and rhythm, he has 1+ pretibial edema, lungs are clear to auscultation anteriorly, abdomen is soft with positive bowel sounds Assessment/plan 1. Acute renal failure-patient's creatinine is 2.4 mg/dL improved from 2.7 yesterday. 2. Pneumonia-patient had to be intubated last night he continues on IV antibiotics will continue ventilator support 3. Respiratory failure-continue vent support 4. Venous stasis ulcer continue wound care 5. kidney transplant-continue his present antirejection medicines. 6. Nutrition continue tube feedings Exam (PN)-Nephrology - Vital Signs Vital signs: Period Temp Pulse Resp BP Sys/Dozier Pulse Ox Last 24 Hr 97.5 F-98.6 F 90-132 06-29 90-121/50-82 96-100 - Lab 03/29/17 04:31 03/29/17 04:31 Most recent lab results ABG pH 7.441 (7.35-7.45) 03/29/17 02:55 ABG pCO2 30.3 MM HG (35-48) L 03/29/17 02:55 ABG pO2 160.0 MM HG (80-95) H 03/29/17 02:55 ABG HCO3 22.1 MMOL/L (20-26) 03/29/17 02:55 ABG O2 Saturation 100.0 % (95-100) 03/29/17 02:55 Calcium 8.7 MG/DL (8.5-10.1) 03/29/17 04:31 Phosphorus 5.9 MG/DL (2.5-4.9) H 03/29/17 04:31 Magnesium 3.6 MG/DL (1.8-2.4) H 03/29/17 04:31 Assessment and Plan (1) Acute renal failure Status: Acute Assessment and plan: This patient's creatinine is increased to 2.6 mg/dL from 1.3 mg/dL per the patient. I suspect this acute rise is related to decreased perfusion related to his atrial fibrillation and rapid ventricular rate and infectious process. We will continue to monitor his creatinine for improvement. Current Visit: Yes (2) Atrial fibrillation with RVR Status: Acute Assessment and plan: Patient's on diltiazem for rate control Current Visit: Yes (3) Pneumonia Status: Acute Assessment and plan: I agree with his current antibiotic therapy, if the patient fails to grow out MRSA I would be inclined to stop his vancomycin and deference to his kidney failure. Current Visit: Yes (4) A-fib Status: Acute Current Visit: No (5) History of kidney transplant Status: Chronic Assessment and plan: I am going to start the patient on cyclosporine 250 mg p.o. twice daily as he takes as an outpatient Current Visit: No (6) Hypertension Status: Chronic Current Visit: No Qualifiers: Hypertension type: essential hypertension Qualified Code(s): I10 - Essential (primary) hypertension (7) Open wound of both legs with complication Status: Chronic Assessment and plan: We will consult Dr. Davis who sees him for his joints as an outpatient Current Visit: No
--- NOTE | 2017-03-29 16:13 | Infectious Disease Progress ---
Assessment and Plan (1) Acute pulmonary edema Status: Acute Current Visit: Yes (2) Acute renal failure Status: Acute Assessment and plan: Patient has acute on chronic renal failure, slightly improved today. Continue to monitor renal function on vancomycin. Blood cultures remain negative at day 3 with stop vancomycin. Current Visit: Yes (3) Atrial fibrillation with RVR Status: Acute Current Visit: Yes (4) Respiratory failure, acute Status: Acute Assessment and plan: Probably due to acute pulmonary edema rather than pneumonia. His sputum Gram stain was negative with no significant white cells therefore I would recommend against treating the gram-positive cocci that are being cultured. Current Visit: Yes (5) Sepsis Status: Acute Assessment and plan: In my opinion no obvious focus of infection. I think the leg wounds are infected and the gram-negative rods represents colonization. Also not impressed with the positive sputum culture given the negative sputum Gram stain. Recommendations: Would continue the empiric vancomycin and Zosyn pending blood culture results Current Visit: Yes (6) History of kidney transplant Status: Chronic Assessment and plan: This makes the patient immunocompromised and at risk for serious infections. Monitor cultures. Current Visit: No (7) Venous stasis ulcer Status: Chronic Assessment and plan: The also appears to be clean, no evidence of active infection. The positive wound swab represents colonization. Recommendations: Continue local wound care. Current Visit: No Infectious Disease - PN: Subj Interval history: Patient seen and examined this morning. Remains on ventilator support, mostly sedated but not says he would follow commands when sedation turned off. He has not had any fever. He is not on vasopressors. Infectious Disease Exam (PN) - Constitutional Vitals: Temp Pulse Resp BP Pulse Ox 97.9 F 108 H 10 L 114/77 100 03/29/17 15:59 03/29/17 15:59 03/29/17 15:59 03/29/17 15:59 03/29/17 15:59 General appearance: no acute distress, other (Intubated and sedated) Exam: General appearance: Sedated on the vent - Eye Eye exam: Present: EOMI. no icterus Pupils: Present: JAMILA - ENT ENT exam: ET tube in situ - Respiratory Respiratory exam: vesicular BS, no crepitations or wheezes - Cardiovascular Cardiovascular exam: regular rate and rhythm, no murmurs - GI/Abdominal GI/Abdominal exam: normal bowel sounds, soft, non-tender, no organomegaly or mass - Extremities Exam Extremities exam: Legs bandaged - Skin Skin exam: no rash Results - Labs CBC & BMP: 03/29/17 04:31 03/29/17 04:31 Lab Results: I have reviewed the past 24 hour labs (Blood cultures remain negative, gram-negative tanisha from left leg ulcer, gram-positive cocci from sputum culture) Quality Measures - VTE Contraindication to Pharmacological VTE Prophylaxis: Already on Theraputic Agent , No Prophylaxis Needed Contraindication to Mechanical VTE Prophylaxis: Vascular Ulceration
[2017-03-29] MEDS: DILTIAZEM 60 MG TABLET PO SCH ×2 (17:03→22:03)
[2017-03-29] MEDS ORDERED: VANCOMYCIN INJ 1,250 MG in SODIUM CHLORIDE 0.9% 250 ML IV ONE (21:00)
[2017-03-29] MEDS: PANTOPRAZOLE 40 MG VIAL IV SCH (22:04)
[2017-03-30] MEDS: DILTIAZEM INJ 100 MG in SODIUM CHLORIDE 0.9% 100 ML IV SCH (00:45)
[2017-03-30] MEDS: ALBUTEROL/IPRATROPIUM 3 ML NEB RESP TX SCH ×3 (01:03→14:45)
[2017-03-30] MEDS: INSULIN REGULAR 100 UNIT/ML SUBCUT SCH ×3 (01:59→12:36)
[2017-03-30] MEDS: PIPERACILLIN/TAZOBACTAM 3,375 MG in SODIUM CHLORIDE 0.9% 100 ML IV SCH ×2 (02:01→11:07)
[2017-03-30] MEDS: MIDAZOLAM 100 MG in SODIUM CHLORIDE 0.9% 80 ML IV SCH ×2 (02:01→02:52)
[2017-03-30 03:01] LABS: Allen Test Positive; Pt O2 Delivery Device Ventilator
[2017-03-30 03:02] LABS: ABG Base Excess -2.7 MMOL/L (-2.5-2.5); ABG HCO3 22.2 MMOL/L (20-26); ABG Oxygen Saturation 99.7 % (95-100); ABG PCO2 29.6 MM HG (35-48); ABG PH 7.448 (7.35-7.45); ABG TCO2 18.4 MMOL/L (23-27)
[2017-03-30 04:50] LABS: Basophils % 0.1 % (0.0-0.8); Hemoglobin 10.3 GM/DL (14.0-18.0); Immature Granulocytes % 0.7 %; Immature Granulocytes Absolute 0.11 #; Lymphocytes # 0.2 10*3/uL (1.4-4.0); Lymphocytes % 1.2 % (21.2-54.2); Mean Corpuscular HGB Conc 30.3 GM/DL (32-36); Mean Corpuscular Hemoglobin 21 PG (27-34); Mean Corpuscular Volume 70.5 FL (87-102); Monocytes # 0.3 10*3/uL (0.11-0.8); Monocytes % 1.9 % (1.7-12.7); NRBC # 0.04 10*3/uL; Neutrophils % 96.1 % (38.7-73.9); Platelet Count 157 T/CUMM (130-400); Red Blood Count 4.82 MC/CUMM (3.8-5.5); Red Cell Distribution Width 25.2 % (9.3-17.3); White Blood Count 15.6 T/CUMM (4-12)
[2017-03-30] MEDS: methylPREDNISolone SOD SUC 40 MG/1 ML VIAL IV SCH ×2 (04:59→12:37)
[2017-03-30 05:22] LABS: Calcium 9.4 MG/DL (8.5-10.1); Osmolality,Calculated 334.1 MOS/KG (273-304); Potassium 3.7 MMOL/L (3.5-5.1)
[2017-03-30 05:28] LABS: Lymphocytes 2 % (20-55); Platelet Estimate Adequate; Segmented Neutrophils 96 % (50-85); Total Cells Counted 100
--- NOTE | 2017-03-30 07:04 | XRay Report ---
Exam: XR chest 1V portable Date: 03/30/2017 4:00 AM Indication: Respiratory failure follow-up ventilator Comparison: 03/29/2017 Technical:AP portable. Findings: Endotracheal tube and nasogastric tube are present. Cardiomegaly is present. Alveolar edema infiltrate present in the right base and mildly in the left perihilar region appears slightly improved when compared to previous exam. Interval development of a small right apical pneumothorax present. Impression: 1. Interval development of a small right apical pneumothorax. 2. Stable position of endotracheal tube at the mid clavicle nasogastric tube 3. Persistent alveolar infiltrates present bilaterally and edema 4. Underlying cardiomegaly Critical test report called to Hortensia WILEY in the intensive care unit 7:00 AM at the time of dictation PROCEDURE INTERPRETED AT [facility] DEPARTMENT OF RADIOLOGY Final Report Signed by: Dr. Lupillo Ghosh
--- NOTE | 2017-03-30 08:04 | Pulmonology Progress Note ---
Pulmonary - PN: Subj Interval history: The patient is a 61-year-old black man that has had a previous kidney transplant years ago. He has a history of hypertension and atrial fibrillation along with some chronic heart disease. He comes in with respiratory distress and his x-ray looks like pulmonary edema. He is on the ventilator and is fairly stable. His oxygenation is better and his x-ray is improving. He has very good urine output. He was not able to do much CPAP yesterday because of sedation. He is still on Cardizem for atrial fibrillation. His chest x-ray still looks like mild heart failure. There is a question of the right apex pneumothorax but this is debatable. This is not causing any problems for sure. Exam (Progress Note) - Constitutional Vitals: Period Temp Pulse Resp BP Sys/Dozier Pulse Ox Last 24 Hr 97.0 F-98.1 F 86-114 10-21 97-123/58-81 96-100 Exam: General appearance: normal weight, no acute distress (The patient is sedated on the ventilator. His vital signs have been stable.) - Head Head exam: Present: normal inspection, normocephalic - Eye Eye exam: Present: EOMI. Absent: scleral icterus Pupils: Present: JAMILA - ENT ENT exam: Present: other (ET tube is in good position.) - Neck Neck exam: Present: normal inspection. Absent: lymphadenopathy, thyromegaly - Respiratory Respiratory exam: Present: He has good breath sounds bilaterally although he has some minimal rhonchi still. His lung compliance is good. He has good air movement. - Cardiovascular Cardiovascular exam: Present: irregular rhythm, systolic murmur. He still has a tachycardia at times. - GI/Abdominal GI/Abdominal exam: Present: normal bowel sounds, soft. Absent: organomegaly, tenderness - Extremities Exam Extremities exam: Present: edema, other (He has wounds on his legs and these are wrapped.) - Neurological Exam Neurological exam: Present: other (Patient is sedated at present.) - Psychiatric Psychiatric exam: Absent: anxious - Skin Skin exam: Present: warm, dry Results - Labs CBC & BMP: 03/30/17 04:03 03/30/17 04:03 Labs: The PO2 is 173 with a PCO2 of 29 and a pH of 7.44 - Diagnostic Findings Procedure: Chest x-ray: image reviewed by me, report reviewed by me (Chest x- ray shows cardiomegaly and mild CHF. There is a questionable small right apex pneumothorax.) Assessment and Plan (1) Acute pulmonary edema Status: Acute Assessment and plan: The patient's x-ray looks like acute pulmonary edema and his oxygenation is better on the ventilator. He continues to improve. So far he has not been able to do CPAP yet. We will continue weaning trials. Current Visit: Yes (2) Hypertension Status: Chronic Assessment and plan: Patient has a long history of hypertensive cardiovascular disease. His vital signs have been stable. Current Visit: No Qualifiers: Hypertension type: essential hypertension Qualified Code(s): I10 - Essential (primary) hypertension (3) History of kidney transplant Status: Chronic Assessment and plan: Patient has a long history of a kidney transplant. His creatinine is down to 2.4. Current Visit: No (4) Open wound of both legs with complication Status: Chronic Assessment and plan: The patient has some venous stasis disease and is followed by surgery. Current Visit: No (5) Cerebrovascular accident Status: Chronic Assessment and plan: Patient apparently had a CVA in the past. Current Visit: No (6) Pneumonia Status: Acute Assessment and plan: The patient has an elevated white count and is covered with antibiotics. Most of this is probably pulmonary edema however. He does have some gram-positive cocci on culture but sensitivities are pending. Current Visit: Yes (7) Atrial fibrillation with RVR Status: Acute Assessment and plan: The patient's heart rate is under better control. He is still on a Cardizem infusion. Current Visit: Yes
--- NOTE | 2017-03-30 08:10 | General Surgery Progress Note ---
Assessment and Plan - Time spent with patient Time spent with patient: Greater than 30 minutes (1) Open wound of both legs with complication Status: Chronic Assessment and plan: Impression: 1. Large open wound of the posterior and lateral aspect of the left leg 2. Ulcer of the medial malleolus of the right ankle 3. Chronic venous stasis disease with ulceration 4. Underlying peripheral arterial disease lower extremities. 5. Respiratory failure etiology unclear. 6. Previous CVA with some weakness left lower extremity. Plan: Start local wound care to the wounds at this time. 2. Culture the wound beds for the possibility that we could get additional products to this leg to aid in healing. 3. We will hopefully get some improvement in the creatinine so that maybe we could consider an arteriogram get an idea what is going on the legs. 03/29/2017. Wound care has begun on the legs try to get him cleaned up. We will try to get some good cultures at some point and may want to look at her Allo[employer]. Patient is on ventilator still at this time. Will see if he qualifies for [facility] 03/30/2017. Apparently the patient is eligible to go to [facility] and that is okay with me because I can continue wound care down there. His cultures from this wound is still pending and does have a gram-negative tanisha growing out. The wounds in general look in good shape with good granulating base and little sloughy material over the surface but otherwise clean. With compression there is little swelling of the area of the wound on the left leg. Will maintain present level of care on on his legs to keep it as clean as he possibly can. Goal is to try to get it cleaned up enough that we could get a product on it either Hylomatrix or even skin grafting. Current Visit: No Subjective Patient reports: Present: no new complaints, afebrile, other (Patient remains on the ventilator) Exam - Constitutional Vitals: Period Temp Pulse Resp BP Sys/Dozier Pulse Ox Last 24 Hr 97.0 F-98.1 F 86-114 10-21 97-123/58-81 96-100 General appearance: mild distress - Head Head exam: Present: normal inspection - ENT ENT exam: Present: normal exam - Neck Neck exam: Present: normal inspection - Respiratory Respiratory exam: Present: rales, rhonchi - Cardiovascular Cardiovascular exam: Present: RRR - GI/Abdominal GI/Abdominal exam: Present: hypoactive bowel sounds, soft. Absent: tenderness - Extremities Exam Extremities exam: Present: other (The wound on the right ankle looks clean and flat little bit of slough still over it. The large wound on the posterior and lateral aspect of the left lower extremity is better good granulating tissue on the back in the lateral aspect is fairly clean at this time but no necrotic tissue present. Little bit of sloughing material over it but is not swollen or edematous at this time with compression.) - Back Exam Back exam: Present: normal inspection - Neurological Exam Neurological exam: Present: altered, other (On ventilator) - Skin Skin exam: Present: normal color, warm, dry Results - Labs CBC & BMP: 03/30/17 04:03 03/30/17 04:03 Lab Results: I have reviewed the past 24 hour labs Quality Measures - VTE Contraindication to Pharmacological VTE Prophylaxis: Already on Theraputic Agent , No Prophylaxis Needed Contraindication to Mechanical VTE Prophylaxis: Vascular Ulceration
[2017-03-30] MEDS ORDERED: DEXTROSE 50% 25 GM/50 ML SYRINGE IV PRN (08:30)
--- NOTE | 2017-03-30 08:40 | Discharge Summary ---
Hospital Course - Hospital Course Hospital Course: Mr Phelps presented with pulmonary edema from heart failure, pulmonary HTN and had hypoxic respiratory failure requiring intubation. He has remained intubated. He is gradually being diuresed, limited by his blood pressure. He is also being treated for infection though his cultures are negative so far at presentation it seemed sepsis was a possibility. He will be transferred to LTAC today. He also has transplanted kidney 20 years ago. His heart failure is diastolic per cards notes from [facility] due to HTN as was his renal failure. He has intermittent afib. Dr Kumar stopped the vanc, and will stop Zosyn if cultures remain negative. - Time spent with patient Time with patient DS: Greater than 30 minutes (32 minutes spent in care coordination and discharge planning, medicine reconciliation, documentation) Diagnosis - Discharge Diagnosis (1) Respiratory failure, acute Status: Acute (2) History of kidney transplant Status: Chronic (3) Open wound of both legs with complication Status: Chronic (4) Cerebrovascular accident Status: Chronic (5) Pneumonia Status: Acute (6) Acute renal failure Status: Acute (7) Atrial fibrillation with RVR Status: Acute (8) Pulmonary hypertension Status: Chronic (9) Acute pulmonary edema Status: Acute (10) Sepsis Status: Acute Discharge Plan - Discharge Data Disposition: Disch/Xfer to [facility] Condition at Discharge: Guarded Discharge Diet: other (tube feeding) - Discharge Medications New Albuterol Neb [Proventil Neb] 2.5 mg RESP TX RT Q1H PRN PRN Reason: Shortness Of Breath/Wheezing Albuterol/Ipratropium Neb [Duoneb] 3 ml RESP TX RT Q6H cycloSPORINE (MODIFIED) CAP [Neoral] 200 mg PO BID capsule Dextrose 50% [D50] 25 gm IV PRN PRN syringe PRN Reason: Hypoglycemia with IV access Diltiazem Tab [Cardizem Tab] 60 mg PO QID tablet Gentamicin 0.1% Oint [Garamycin 0.1% Oint] 1 applic TOP DAILY applic Glucagon 1 mg IM PRN PRN vial PRN Reason: Hypoglycemia w/o IV access methylPREDNISolone SOD SUC INJ [SoluMEDROL] 60 mg IV Q8H vial Metoprolol Tartrate Tab [Lopressor Tab] 25 mg PO BID tablet Mycophenolate Mofetil Cap [Cellcept] 250 mg PO BID capsule Ondansetron Inj [Zofran Inj] 4 mg IV Q4H PRN vial PRN Reason: Nausea Piperacillin/Tazobactam [Zosyn] 3,375 mg IV Q8H vial Acetaminophen Tab [Tylenol Tab] 650 mg PO Q4H PRN tablet PRN Reason: Fever, Headache, Mild Pain Acetic Acid 0.25% Irrigation 50 ml IRRIG DAILY ml cycloSPORINE (MODIFIED) CAP [Neoral] 50 mg PO BID capsule Insulin Regular [HumuLIN R] See Protocol SUBCUT Q6HR unit Midazolam [Versed] 100 mg IV TITRATE vial Vancomycin Inj 1,250 mg IV PRN PRN vial PRN Reason: PHARMACY MANAGING Continue Apixaban [Eliquis] 2.5 mg PO BID Pentoxifylline [TRENtal] 400 mg PO TID tablet Skin Healing Oint (Aquaphor) [Aquaphor] 1 applic TOP DAILY applic Gabapentin 300 mg PO TID Tamsulosin [Flomax] 1 capsule PO DAILY Discontinued Spironolactone 50 mg PO DAILY Minoxidil 20 mg PO BID Metoprolol Tartrate Tab [Lopressor Tab] 50 mg PO BID predniSONE TAB [PredniSONE] 10 mg PO DAILY Furosemide Tab [Lasix Tab] 80 mg PO BID Potassium Chloride Cap/Tab [K Dur] 40 meq PO DAILY Torsemide 100 mg PO DAILY No Action Mycophenolate Mofetil 500 mg PO BID - Follow Up or Referral - Forms/Instructions Instructions: Atrial Fibrillation (DC), Sepsis (DC), Pressure Ulcer (DC) Exam - Constitutional Vitals: Period Temp Pulse Resp BP Sys/Dozier Pulse Ox Last 24 Hr 97.0 F-98.1 F 86-114 10-21 97-123/58-81 96-100 General appearance: normal weight, no acute distress - Respiratory Respiratory exam: Present: rhonchi - Cardiovascular Cardiovascular exam: Present: irregular rhythm - GI/Abdominal GI/Abdominal exam: Present: normal bowel sounds, soft. Absent: tenderness - Extremities Exam Extremities exam: Present: edema Discharge Results Procedures and tests throughout hospitalization: Pending Orders 03/27/17 17:35 Blood Culture Stat 03/28/17 09:55 Wound Culture Routine 03/28/17 10:25 Sputum Culture and Gram Stain Stat 03/31/17 04:00 Basic Metabolic Panel IN AM Comp Blood Count Auto Diff IN AM 04/01/17 04:00 Basic Metabolic Panel IN AM Comp Blood Count Auto Diff IN AM 04/02/17 04:00 Magnesium MOTH Phosphorous MOTH Prealbumin MOTH Labs on day of discharge: Labs from last 24 hours 03/30/17 03/30/17 03/30/17 06:01 04:03 04:03 WBC 15.6 H RBC 4.82 Hgb 10.3 L Hct 34.0 L MCV 70.5 L MCH 21 L MCHC 30.3 L RDW 25.2 H Plt Count 157 Neut % (Auto) 96.1 H Lymph % (Auto) 1.2 L Weston % (Auto) 1.9 Eos % (Auto) 0.0 Baso % (Auto) 0.1 Neut # (Auto) 15.0 H Lymph # (Auto) 0.2 L Weston # (Auto) 0.3 Eos # (Auto) 0.0 Baso # (Auto) 0.0 Total Counted 100 Immature Gran % 0.7 Nucleated RBC % 0.3 Immature Gran # 0.11 Segmented Neutrophils 96 H Lymphocytes 2 L Monocytes 2 Nucleated RBCs # 0.04 Platelet Estimate Adequate Immature Plt Fraction 2.0 ABG pH ABG pCO2 ABG pO2 ABG HCO3 ABG Total CO2 ABG O2 Saturation ABG Base Excess FiO2 Sodium 149 H Potassium 3.7 Chloride 116 H Carbon Dioxide 21 Anion Gap 15.7 H BUN 105 H D Creatinine 2.40 H GFR Calculation 36 BUN/Creatinine Ratio 43.00 H Glucose 202 H POC Glucose 246 H Calculated Osmolality 334.1 H Calcium 9.4 Random Vancomycin 03/30/17 03/30/17 03/29/17 02:55 00:11 19:39 WBC RBC Hgb Hct MCV MCH MCHC RDW Plt Count Neut % (Auto) Lymph % (Auto) Weston % (Auto) Eos % (Auto) Baso % (Auto) Neut # (Auto) Lymph # (Auto) Weston # (Auto) Eos # (Auto) Baso # (Auto) Total Counted Immature Gran % Nucleated RBC % Immature Gran # Segmented Neutrophils Lymphocytes Monocytes Nucleated RBCs # Platelet Estimate Immature Plt Fraction ABG pH 7.448 ABG pCO2 29.6 L ABG pO2 173.0 H ABG HCO3 22.2 ABG Total CO2 18.4 L ABG O2 Saturation 99.7 ABG Base Excess -2.7 L FiO2 40.00 Sodium Potassium Chloride Carbon Dioxide Anion Gap BUN Creatinine GFR Calculation BUN/Creatinine Ratio Glucose POC Glucose 195 H Calculated Osmolality Calcium Random Vancomycin 6.5 07/27/17 07/27/17 17:56 11:57 WBC RBC Hgb Hct MCV MCH MCHC RDW Plt Count Neut % (Auto) Lymph % (Auto) Weston % (Auto) Eos % (Auto) Baso % (Auto) Neut # (Auto) Lymph # (Auto) Weston # (Auto) Eos # (Auto) Baso # (Auto) Total Counted Immature Gran % Nucleated RBC % Immature Gran # Segmented Neutrophils Lymphocytes Monocytes Nucleated RBCs # Platelet Estimate Immature Plt Fraction ABG pH ABG pCO2 ABG pO2 ABG HCO3 ABG Total CO2 ABG O2 Saturation ABG Base Excess FiO2 Sodium Potassium Chloride Carbon Dioxide Anion Gap BUN Creatinine GFR Calculation BUN/Creatinine Ratio Glucose POC Glucose 238 H 237 H Calculated Osmolality Calcium Random Vancomycin Preliminary micro results at discharge 03/28/17 09:55 Wound Culture - Preliminary Ankle - Left Gram Negative Rods 03/28/17 10:25 Sputum Culture - Preliminary Sputum Gram Positive Cocci 03/27/17 17:35 Blood Culture - Preliminary Blood No growth at 1 day 03/27/17 17:35 Blood Culture - Preliminary Blood No growth at 1 day DS: Provider Date of admission: 03/27/17 15:39 Primary care physician: Margarita Suggs NP Attending physician on admission: Ange Atkins MD Consults: 03/27/17 16:14 Consult to Physician [CONS] Routine Comment: Consulting Provider: Cardiology - [facility] Person Notified: Dr Gasca Date Notified: 03/27/17 Time Notified: 16:55 03/27/17 16:15 Consult to Physician [CONS] Routine Comment: Consulting Provider: Hai Burgess Consult to Specialist Group: Nephrology When should Consulting Provider be notified: Now Person Notified: Dr Burgess Date Notified: 03/27/17 Time Notified: 17:15 03/27/17 16:18 Consult to Case Mgmt/Social Srvs [CONS] Routine Reason for Case Mgmt/Social Srvs: Discharge Planning 03/27/17 16:21 Consult to Physician [CONS] Routine Comment: LE wounds Consulting Provider: Lm Davis Person Notified: Dr Ly Date Notified: 03/27/17 Time Notified: 16:55 Consult to Wound Care [facility] [CONS] Routine Reason for Wound Care: Wound Care Management 03/27/17 16:31 Consult to Physician [CONS] Routine Comment: sepsis, immunosuppressed post kidney transplant Consulting Provider: Kim Kumar Person Notified: Dr Kumar Date Notified: 03/27/17 Time Notified: 16:50 03/27/17 16:33 Consult to Pharmacy [CONS] Routine Reason for Pharmacy Consult: Dose/Manage Antibiotics Dose/Manage Vancomycin 03/27/17 18:58 Consult to Physician [CONS] Routine Comment: ventilator Consulting Provider: Mikel Guidry 03/28/17 07:57 Consult to Dietitian [CONS] Routine Reason for Dietitian: TF-Initiate/Manage 03/29/17 10:26 Consult to Case Mgmt/Social Srvs [CONS] Routine Reason for Case Mgmt/Social Srvs: LTAC Consult Comment: need to check into [facility] eligibility to transfer for wound care Discharging clinician: Ange Atkins MD
[2017-03-30] MEDS ORDERED: GENTAMICIN 0.1% OINT 15 GM TUBE TOP SCH (09:00)
[2017-03-30] MEDS ORDERED: ACETIC ACID 0.25% IRRIGATION 1,000 ML BOTTLE IRRIG SCH (09:00)
[2017-03-30] MEDS: APIXABAN 2.5 MG TABLET PO SCH (09:10)
[2017-03-30] MEDS: CYCLOSPORINE 25 MG PO SCH (09:10)
[2017-03-30] MEDS: SKIN HEALING OINT (AQUAPHOR) 50 GM TUBE TOP SCH (09:10)
[2017-03-30] MEDS: METOPROLOL TARTRATE 25 MG TABLET PO SCH (09:10)
[2017-03-30] MEDS: PENTOXIFYLLINE 400 MG TABLET PO SCH (09:10)
[2017-03-30] MEDS: DILTIAZEM 60 MG TABLET PO SCH ×2 (09:11→12:36)
[2017-03-30] MEDS: MYCOPHENOLATE MOFETIL 250 MG CAPSULE PO SCH (09:11)
[2017-03-30] MEDS: GABAPENTIN 300 MG CAPSULE PO SCH (09:11)
[2017-03-30] MEDS: TAMSULOSIN 0.4 MG CAPSULE PO SCH (09:12)
[2017-03-30] MEDS: cycloSPORINE (MODIFIED) 100 MG CAPSULE PO SCH (09:13)
--- NOTE | 2017-03-30 10:07 | Nephrology Progress Note ---
Nephrology - PN: Subj Interval history: Patient is intubated and sedate. Physical exam general patient is chronically ill-appearing, heart is regular rate and rhythm, he has no pitting edema, lungs are clear to auscultation anteriorly, abdomen is soft with positive bowel sounds Assessment/plan 1. Acute renal failure on chronic renal failure-this patient's baseline creatinine is around 2 mg/dL his creatinine now is 2.4 mg/dL, I suspect he has some acute injury related to his acute illness we will continue to monitor this 2. Pneumonia-we will continue broad-spectrum antibiotics 3. Venous stasis ulcer continue wound care 4. Kidney transplant continue his antirejection medication 5. Hypernatremia-I am going to increase his free water flushes through his tube feeds Exam (PN)-Nephrology - Vital Signs Vital signs: Period Temp Pulse Resp BP Sys/Dozier Pulse Ox Last 24 Hr 97.0 F-98.1 F 86-114 10-21 97-123/58-81 96-100 - Lab 03/30/17 04:03 03/30/17 04:03 Most recent lab results ABG pH 7.448 (7.35-7.45) 03/30/17 02:55 ABG pCO2 29.6 MM HG (35-48) L 03/30/17 02:55 ABG pO2 173.0 MM HG (80-95) H 03/30/17 02:55 ABG HCO3 22.2 MMOL/L (20-26) 03/30/17 02:55 ABG O2 Saturation 99.7 % (95-100) 03/30/17 02:55 Calcium 9.4 MG/DL (8.5-10.1) 03/30/17 04:03 Phosphorus 5.9 MG/DL (2.5-4.9) H 03/29/17 04:31 Magnesium 3.6 MG/DL (1.8-2.4) H 03/29/17 04:31 Assessment and Plan (1) Acute renal failure Status: Acute Assessment and plan: This patient's creatinine is increased to 2.6 mg/dL from 1.3 mg/dL per the patient. I suspect this acute rise is related to decreased perfusion related to his atrial fibrillation and rapid ventricular rate and infectious process. We will continue to monitor his creatinine for improvement. Current Visit: Yes (2) Atrial fibrillation with RVR Status: Acute Assessment and plan: Patient's on diltiazem for rate control Current Visit: Yes (3) Pneumonia Status: Acute Assessment and plan: I agree with his current antibiotic therapy, if the patient fails to grow out MRSA I would be inclined to stop his vancomycin and deference to his kidney failure. Current Visit: Yes (4) A-fib Status: Acute Current Visit: No (5) History of kidney transplant Status: Chronic Assessment and plan: I am going to start the patient on cyclosporine 250 mg p.o. twice daily as he takes as an outpatient Current Visit: No (6) Hypertension Status: Chronic Current Visit: No Qualifiers: Hypertension type: essential hypertension Qualified Code(s): I10 - Essential (primary) hypertension (7) Open wound of both legs with complication Status: Chronic Assessment and plan: We will consult Dr. Davis who sees him for his joints as an outpatient Current Visit: No
--- NOTE | 2017-03-30 11:11 | Infectious Disease Progress ---
Assessment and Plan (1) Acute pulmonary edema Status: Acute Current Visit: Yes (2) Acute renal failure Status: Acute Assessment and plan: Patient has acute on chronic renal failure, stable over the past 2 days. Current Visit: Yes (3) Atrial fibrillation with RVR Status: Acute Current Visit: Yes (4) Respiratory failure, acute Status: Resolved Assessment and plan: Probably due to acute pulmonary edema rather than pneumonia. His sputum Gram stain was negative with no significant white cells therefore I recommend against treating the gram-positive cocci that are being cultured. Current Visit: Yes (5) Sepsis Status: Acute Assessment and plan: In my opinion no obvious focus of infection. I think the leg wounds are not infected and the gram-negative rods represents colonization. Also not impressed with the positive sputum culture given the negative sputum Gram stain. Recommendations: I recommend stopping vancomycin; the Zosyn can be continued pending finalization of the blood culture Current Visit: Yes (6) History of kidney transplant Status: Chronic Assessment and plan: This makes the patient immunocompromised and at risk for serious infections. Current Visit: No (7) Venous stasis ulcer Status: Chronic Assessment and plan: The also appears to be clean, no evidence of active infection. The positive wound swab represents colonization. Recommendations: Continue local wound care. Current Visit: No Infectious Disease - PN: Subj Interval history: Patient is relatively stable since yesterday he has been afebrile, no significant endotracheal secretions. He has been accepted to go to [facility] today. Infectious Disease Exam (PN) - Constitutional Vitals: Temp Pulse Resp BP Pulse Ox 97.0 F L 89 12 115/79 98 03/30/17 04:00 03/30/17 11:00 03/30/17 11:00 03/30/17 11:00 03/30/17 11:00 General appearance: mild distress Exam: General appearance: Sedated on the vent - Eye Eye exam: Present: EOMI. no icterus Pupils: Present: JAMILA - ENT ENT exam: ET tube in situ - Respiratory Respiratory exam: vesicular BS, no crepitations or wheezes - Cardiovascular Cardiovascular exam: regular rate and rhythm, no murmurs - GI/Abdominal GI/Abdominal exam: normal bowel sounds, soft, non-tender, no organomegaly or mass - Extremities Exam Extremities exam: Legs bandaged - Skin Skin exam: no rash Results - Labs CBC & BMP: 03/30/17 04:03 03/30/17 04:03 Lab Results: I have reviewed the past 24 hour labs (Blood cultures remain negative) - Diagnostic Findings Procedure: Chest x-ray: image reviewed by me, report reviewed by me (Small right apical pneumothorax, diffuse increased interstitial markings as before) Quality Measures - VTE Contraindication to Pharmacological VTE Prophylaxis: Already on Theraputic Agent , No Prophylaxis Needed Contraindication to Mechanical VTE Prophylaxis: Vascular Ulceration
[2017-03-30 14:15] VITALS: BP 122/84
== END 2017-03-30 14:40 | DRG 871 ==
LOC: EDUNIT# → EDBD → N.ED 14:39 → N.EDINP 15:39 → N.ICU 16:41
PROVIDERS: ADMIT Internal Medicine; ATTEND Internal Medicine